=== PATIENT | female | born 1940 | race Caucasian/White ===

== ENCOUNTER 2022-04-18 14:26 | Outpatient (REF) | payer MEDICARE, SELFPAY ==
[2022-04-18 15:46] LABS: Anion Gap 12 (12-20); Blood Urea Nitrogen 22 mg/dL (9-16); Calcium 9.3 mg/dL (8.4-10.2); Carbon Dioxide 26 mmol/L (22-29); Chloride 105 mmol/L (96-108); Estimated Glomerular Filt Rate > 60; Glucose Random 103 mg/dL (60-115); Potassium 4.2 mmol/L (3.3-5.1); Sodium 139 mmol/L (135-145)
[2022-04-18 15:54] LABS: Erythrocyte Sedimentation Rate 13 MM/HR (0-20)
[2022-04-18 16:01] LABS: T4 Thyroxine 7.7 ug/dL (4.5-12.0); Thyroid Stimulating Hormone 1.48 uIU/mL (0.32-4.0)
[2022-04-19 09:14] LABS: Lyme Abs Screen <0.90 index
[2022-04-21 15:29] LABS: Aldolase 3.7 U/L (<=8.1)
== END 2022-04-18 14:27 | disposition home or self-care (01) ==
LOC: HO.LAB 14:26
PROVIDERS: PCP Internal Medicine; Visit Provider Psychiatry & Neurology Neurology
DX: G62.9 Polyneuropathy, unspecified (principal)
CPT/HCPCS: 36415; 80048; 82085; 82550; 84436; 84443; 85652; 86617; 86618

== ENCOUNTER 2024-04-09 14:47 | Outpatient (REF) | payer MEDICARE, SELFPAY ==
[2024-04-09 15:29] LABS: Imm Gran Abs Auto 0.01 X10*3/uL (0.00-0.03); Imm Gran Pct Auto 0.2 % (0.0-0.4); MANUAL DIFF FLAG SCAN; Mean Corpuscular Volume 96.6 fL (80.0-98.0); Monocytes Absolute Auto 0.4 X10*3/uL (0.1-1.2); Neutrophils Absolute Auto 2.8 x10*3/uL (2.0-8.3); PLT CLUMP 1; Red Cell Distribution Width 13.1 % (11.0-16.0); SCAN SMEAR FLAG 1
[2024-04-09 15:32] LABS: Basophils Percent Auto 0.7 % (0-2); Eosinophils Absolute Auto 0.2 X10*3/uL (0.0-0.4); Eosinophils Percent Auto 3.4 % (0-4); Hematocrit 36.8 % (37.0-47.0); Lymphocytes Absolute Auto 1.1 X10*3/uL (1.2-4.9); Lymphocytes Percent Auto 24.9 % (20-40); Mean Corpuscular HGB Conc 32.6 g/dl (31.0-35.0); Mean Corpuscular Hemoglobin 31.5 pg (27.0-33.0); Mean Platelet Volume 11.6 fL (9.4-12.3); Monocytes Percent Auto 7.9 % (2-11); Neutrophils Percent Auto 62.9 % (45-73); Red Blood Count 3.81 X10*6/uL (4.20-5.50)
--- OUTSIDE RECORDS SUMMARY | 2024-04-09 15:40 | XMS_ITS | Clinical Summary ---
Author Organization [facility] Address [address] [place] [address] Care Team Providers Care Water Filter Cleaner Name Role Phone Michael Cristina MD Primary Care Provider [phone] Allergies Active Allergy Reactions Criticality Noted Date Comments Sulfites 04/17/2019 Medications Medication Sig Dispensed Refills Start Date End Date Status lisinopril (PRINIVIL,ZESTRIL) tablet 20 mg Take 1 tablet (20 mg total) by mouth daily. 0 Active sertraline (ZOLOFT) 50 MG tablet Take 1 tablet (50 mg total) by mouth daily. 0 Active timolol (TIMOPTIC) 0.5 % ophthalmic solution Place 1 drop into both eyes daily. 0 Active alendronate (FOSAMAX) tablet 70 mg Take 1 tablet (70 mg total) by mouth every 7 days. Take with water on empty stomach/Nothing by mouth and do not lie down for next 30 minutes 0 Active pramipexole (MIRAPEX) 0.25 MG tablet Take 1 tablet (0.25 mg total) by mouth 3 (three) times a day. 0 Active Calcium Carbonate-Vitamin D (CALCIUM 600/VITAMIN D PO) Take by mouth 2 (two) times a day. 0 Active Multiple Vitamins-Minerals (VITEYES AREDS ADVANCED PO) Take by mouth. 0 Active omeprazole (PriLOSEC) 40 MG capsule Take 1 capsule (40 mg total) by mouth daily. 0 Active anastrozole (ARIMIDEX) 1 MG tablet Take 1 tablet by mouth once daily 90 tablet 1 07/17/2023 Active Active Problems Problem Noted Date Diagnosed Date Malignant neoplasm of overla pping sites of left breast in female, estrogen receptor positive 04/20/2019 Social History Tobacco Use Types Packs/Day Years Used Date Smoking Tobacco: Never Assessed Sex and Gender Information Value Date Recorded Sex Assigned at Not on file Gender Identity Not on file Sexual Orientation Not on file Job Start Date Occupation Industry Not on file Not on file Not on file Last Filed Vital Signs Vital Sign Reading Time Taken Comments Blood Pressure 140/39 08/03/2023 9:37 AM EDT Pulse 64 08/03/2023 9:37 AM EDT Temperature 36.8 ??C (98.3 ??F) 08/03/2023 9:37 AM ED T Respiratory Rate - - Oxygen Saturation 95% 08/03/2023 9:37 AM EDT Inhaled Oxygen Concentration - - Weight 79.4 kg (175 lb) 08/03/2023 9:37 AM EDT Height 170.2 cm (5' 7 ) 08/03/2023 9:37 AM EDT Body Mass Index 27.41 08/03/2023 9:37 AM EDT Plan of Treatment Health Maintenance Due Date Last Done Comments COVID-19 Vaccine (#1) 08/05/1945 Depression Screening 1954 BMI Counseling 1960 Preventative Health Evaluation 1960 DTap / Tdap / Td (1 - Tdap) 1961 Shingrix-Zoster Vaccine (1 o f 2) 1961 Fall Risk Assessment 08/05/2007 Osteoporosis Screening (DEXA Scan) 08/05/2007 Pneumococcal Vaccine (2 of 2 - PCV) 08/17/2011 08/16/2010 RSV Adult > 60+ Yrs or (1 - 1-dose 75+ series) 2017 Influenza Vaccine (#1) 2023 2, 12/17/2010 Hepatitis B Vaccines Aged Out No long er eligible based on patient's age to complete this topic RSV Ped < 20 months Aged Out No longe r eligible based on patient's age to complete this topic Care Teams Water Filter Cleaner Relationship Specialty Start Date End Date Michael Cristina MD [address] [place] [address] PCP - General Internal Medicine 03/26/19
--- OUTSIDE RECORDS SUMMARY | 2024-04-09 15:40 | XMS_ITS | Clinical Summary ---
Author Organization [facility] Address [address] [place] [address] Phone Care Team Providers Care Associate Creative Director Name Role Phone Michael Cristina MD Primary Care Provider [phone] Allergies Active Allergy Reactions Criticality Noted Date Comments Sulfites 04/17/2019 Medications alendronate (FOSAMAX) 70 mg tablet Take 1 tablet (70 mg total) by mouth every 7 days. Take with water on empty stomach/Nothi ng by mouth and do not lie down for next 30 minutes Active anastrozole (ARIMIDEX) 1 mg Take 1 tablet (1 mg total) by mouth daily 02/23/2023 Active calcium carb/vit D3/minerals (CALCIUM-VITAMI N D ORAL) Calcium Carbonate-Vit saxena D (CALCIUM 600/VITAMIN D PO) Route: Take by mouth 2 (two) times a day. - Oral Active multivitamin with minerals (MULTIPLE VITAMIN-MINERAL S ORAL) Multiple Vitamins-Mine rals (VITEYES AREDS ADVANCED PO) Route: Take by mouth. - Oral Active sertraline (ZOLOFT) 50 mg tablet Take 1 tablet (50 mg total) by mouth daily. Active timolol (TIMOPTIC) 0.5 % ophthalmic solution Place 1 drop into both eyes daily. Active sucralfate (CARAFATE) 1 gram tablet Take by mouth 4 (four) times a day. Active rOPINIRole (REQUIP) 3 mg tablet Take 1 tablet (3 mg total) by mouth at bedtime. Active Active Problems Problem Noted Date Diagnosed Date Osteopenia of multiple sites 02/08/2024 Use of anastrozole 02/08/2024 Malignant neoplasm of overla pping sites of left breast in female, estrogen receptor positive 05/05/2023 Encounters Date Type Department Care Team Description 03/14/2024 Lab Requisition [facility] - Main Lab [address] [facility] [place] [address] Duong Harrington PA Mixed hyperlipidemia; Type 2 diabetes mellitus without complications (CMS/HCC); Major depressive disorder, single episode, unspecified 02/08/2024 10:15 AM EST Office Visit [facility] Hematology Oncology [address] [place] [address] Robyn Marie, Malignant neoplasm of overlapping sites of left breast in female, estrogen receptor positive (CMS/HCC) (Primary Dx); Encounter for monitoring anastrozole therapy; Osteopenia, unspecified location from Last 3 Months Surgical History Surgery Date Site/Laterality Comments EYE SURGERY PROCEDURE: HISTORICAL EYE SURGERY COLONOSCOPY 01/04/2010 PROCEDURE: HISTORICAL COLONOSCOPY; COMMENT: Dr Youssef - cecal AVM, diverticulosis, internal hemorrhoids ESOPHAGOGASTRODUODENOSCOPY 02/13/2012 PROCEDURE: ND ESOPHAGOGASTRODUODENOSCOPY TRANSORAL DIAGNOSTIC; COMMENT: normal on PPI rx. OTHER SURGICAL HISTORY 05/01/2020 PROCEDURE: ---- OTHER ----; COMMENT: Removal of left breast implant and complete capsulectomy of the area of rupture with fibrosis around it it off the rib cartilage, pectoral muscle, and sternum by Dr. Michael Watters Family History Medical History Relation Name Comments Breast cancer Maternal Grandmother <50 Breast cancer Mother 60s Breast cancer Sister 73 Relation Name Status Comments Brother Alive Father (Age 61) pe Maternal Grandmother Mother (Age 92) breast can cer, Sister Alive Social History Tobacco Use Types Packs/Day Years Used Date Smoking Tobacco: Former Smokeless Tobacco: Former Alcohol Use Standard Drinks/Week Comments No 0 (1 standard drink = 0.6 oz pur e alcohol) Comments Unknown Sex and Gender Information Value Date Recorded Sex Assigned at Not on file Legal Sex Female 12:31 PM EST Gender Identity Not on file Sexual Orientation Not on file Obstetrics History Last Filed Vital Signs Vital Sign Reading Time Taken Comments Blood Pressure 134/45 02/08/2024 10:18 AM EST Pulse 60 02/08/2024 10:18 AM EST Temperature 36.8 ??C (98.3 ??F) 02/08/2024 10:[address] Respiratory Rate - - Oxygen Saturation 100% 02/08/2024 10:18 AM EST Inhaled Oxygen Concentration - - Weight 78.7 kg (173 lb 9.6 oz) 02/08/2024 10:18 AM EST Height 170.2 cm (5' 7 ) 02/08/2024 10:18 AM EST Body Mass Index 27.19 02/08/2024 10:18 AM EST Plan of Treatment Upcoming Encounters Date Type Department Care Team (Late st Contact Info) Description 04/24/2024 1:45 PM EST Office Visit [facility] [address] [facility] [address] [place] [phone] Vanessa Barnes MD [address] [facility] [address] [place] [address] 05/03/2024 8:45 AM EST [facility]ointment [facility] at [address] [phone] 09/05/2024 10:00 AM EDT Office Visit [facility] Hematology Oncology [address] [place] [phone] Robyn Marie, [address] [place] [address] Health Maintenance Due Date Last Done Comments COVID-19 Vaccine (#1) 08/05/1945 Diabetes: Annual Foot Exam 1952 Diabetes: Annual Retina Eye Exam 1952 Zoster Vaccines (1 of 2) 1961 Pneumococcal Vaccine: 50+ Years (2 of 2 - PCV) 08/17/2011 08/16/2010 RSV Immunization Patients 60+ Years Old (1 - 1-dose 75+ series) 2017 DTaP,Tdap,and Td Vaccines (2 - Td or Tdap) 08/16/2020 08/16/2010 Depression Screening 02/03/2022 Falls Risk Assessment 02/03/2022 Medicare Annual Wellness Visit 02/03/2022 Social Influencers of Health Screening 02/03/2022 Diabetes: Annual Urine Albumin-Creatinine Ratio (uACR) 02/09/2022 Influenza Vaccine (#1) 2023 01/11/2012, 2010 Diabetes: Blood Sugar Control Test (HGBA1C) 09/11/2024 03/14/2024 Diabetes: Annual GFR (Glomerular Filtration Rate) 03/14/2025 03/14/2024 Hypertension/CHF/CAD Annual BMP Blood Test 03/14/2025 03/14/2024 Cholesterol Screening (Lipid Panel) 03/14/2029 03/14/2024, 03/14/2024 Osteoporosis Screening (Bone Density Screening) 11/22/2033 11/23/2023, 11/22/2022, 11/11/2021, Additional history exists HIB Vaccines Aged Out No longer eligi ble based on patient's age to complete this topic HPV Vaccines Aged Out No longer eligi ble based on patient's age to complete this topic Hepatitis A Vaccines Aged Out No long er eligible based on patient's age to complete this topic Hepatitis B Vaccines Aged Out No long er eligible based on patient's age to complete this topic IPV Vaccines Aged Out No longer eligi ble based on patient's age to complete this topic MMR Vaccines Aged Out No longer eligi ble based on patient's age to complete this topic Meningococcal ACWY Vaccine Aged Out N o longer eligible based on patient's age to complete this topic RSV Immunization Patients Under 20 months Aged Out No longer eligible based on patient's age to complete this topic Varicella Vaccines Aged Out No longer eligible based on patient's age to complete this topic Procedures Procedure Name Priority Date/Time Associated Diagnosis Comments SST - GOLD Routine 03/14/2024 12:00 AM EST Mixed hyperlipidemia Type 2 diabetes mellitus without complications (CMS/HCC) Major depressive disorder, single episode, unspecified HEMOGLOBIN A1C Routine 03/14/2024 12:00 AM EST Mixed hyperlipidemia Type 2 diabetes mellitus without complications (CMS/HCC) Major depressive disorder, single episode, unspecified CREATININE, SERUM Routine 03/14/2024 12: 00 AM EST Mixed hyperlipidemia Type 2 diabetes mellitus without complications (CMS/HCC) Major depressive disorder, single episode, unspecified BUN Routine 03/14/2024 12:00 AM EST Mixed hyperlipidemia Type 2 diabetes mellitus without complications (CMS/HCC) Major depressive disorder, single episode, unspecified LDL CHOLESTEROL, DIRECT Routine 03/14/2024 12:00 AM EST Mixed hyperlipidemia Type 2 diabetes mellitus without complications (CMS/HCC) Major depressive disorder, single episode, unspecified HEPATIC FUNCTION PANEL Routine 03/14/2024 12:00 AM EST Mixed hyperlipidemia Type 2 diabetes mellitus without complications (CMS/HCC) Major depressive disorder, single episode, unspecified LIPID PANEL WITH REFLEX TO DIRECT LDL Routine 03/14/2024 12:00 AM EST Mixed hyperlipidemia Type 2 diabetes mellitus without complications (CMS/HCC) Major depressive disorder, single episode, unspecified ELECTROLYTE PANEL Routine 03/14/2024 12: 00 AM EST Mixed hyperlipidemia Type 2 diabetes mellitus without complications ([facility]/HCC) Major depressive disorder, single episode, unspecified TIGRE DEXA AXIAL SKELETON Routine 11/23/2023 5:01 PM EDT Other specified disorders of bone density and structure, right thigh from Last 3 Months or Most Recently Relevant to Health Maintenance Results * SST tube (03/14/2024 12:00 AM EST) Pathologist [facility] Extra Tube Hold for add-ons. 03/14/2024 8:01 PM EST [facility] Comment:Auto resulted. Blood Venous blood specimen / Unknown 03/14/2024 03/14/2024 6:40 PM EST us Duong MONTENEGRO LAB BLOOD ORDERABLES Final Res ult [facility] [address] [place] [address], [place] [phone] * Lipid panel with reflex to direct LDL (03/14/2024 12:00 AM EST) Cholesterol 140 0 - 200 mg/dL LAB CHEMISTRY METHOD 03/14/2024 10:13 PM EST [facility] Triglycerides 79 0 - 150 mg/dL LAB CHEMISTRY METHOD 03/14/2024 10:13 PM [facility] HDL 44 >=40 mg/dL LAB CHEMISTRY METHOD 03/14/2024 10:13 PM [facility] LDL Calculated 80 0 - 100 mg/dL LAB CHEMISTRY METHOD 03/14/2024 10:13 PM [facility] VLDL Cholesterol Mega 15.8 mg/dL LAB CHEMISTRY METHOD 03/14/2024 10:13 PM [facility] Non HDL Chol. (LDL+VLDL) 96 <145 mg/dL LAB CHEMISTRY METHOD 03/14/2024 10:13 PM [facility] Chol/HDL Ratio 3.2 0.0 - 4.4 LAB CHEMISTRY METHOD 03/14/2024 10:13 PM [facility] Blood Venous blood specimen / Unknown 03/14/2024 03/14/2024 6:40 PM EST Duong MONTENEGRO LAB BLOOD ORDERABLES Final Res ult [facility] [address] [place] [address], [place] [phone] * Creatinine (03/14/2024 12:00 AM EST) Creatinine 0.96 0.50 - 1.10 mg/dL LAB CHEMISTRY METHOD 03/14/2024 9:56 PM [facility] eGFR 60 >=60 mL/min/1. 73m2 LAB CHEMISTRY METHOD 03/14/2024 9:56 PM [facility] Comment:Calculation based on the??Chronic Kidney Disease Epidemiology Collaboration (CKD-EPI) equation refit??without adjustment for race. Blood Venous blood specimen / Unknown 03/14/2024 03/14/2024 6:40 PM EST us Duong Kolovrat PA LAB BLOOD ORDERABLES Final Res ult Performing Organization Address City/[facility]/ZIP Co de Phone Number [facility] [address] [place] [address], [place] [phone] * BUN (03/14/2024 12:00 AM EST) BUN 23 5 - 25 mg/dL LAB CHEMISTRY METHOD 03/14/2024 9:56 PM EST [facility] Blood Venous blood specimen / Unknown 03/14/2024 03/14/2024 6:40 PM EST us Duong MONTENEGRO LAB BLOOD ORDERABLES Final Res ult Performing Organization Address City/[facility]/ZIP Co de Phone Number [facility] [address] [place] [address], [place] [phone] * LDL cholesterol, direct (03/14/2024 12:00 AM EST) LDL Direct 83 <=100 mg/dL LAB CHEMISTRY METHOD 03/14/2024 10:13 PM EST [facility] Blood Venous blood specimen / Unknown 03/14/2024 03/14/2024 6:40 PM EST us Duogn MONTENEGRO LAB BLOOD ORDERABLES Final Res ult Performing Organization Address City/[facility]/ZIP Co de Phone Number [facility] [address] [place] [address], [place] [phone] * Hemoglobin A1c (03/14/2024 12:00 AM EST) Hemoglobin A1C 6.0 <6.5 % LAB CHEMISTRY METHOD 03/15/2024 10:14 AM EST [facility] Mean Bld Glu Estim. 126 mg/dL LAB CHEMISTRY METHOD 03/15/2024 10:14 AM EST [facility] Blood Venous blood specimen / Unknown 03/14/2024 03/14/2024 6:40 PM EST Duong MONTENEGRO LAB BLOOD ORDERABLES Final Res ult Performing Organization Address [facility]/ZIP Co de Phone Number [facility] [address] [place] [address], [place] [phone] * Hepatic function panel (03/14/2024 12:00 AM EST) Total Protein 7.6 6.0 - 8.0 g/dL LAB CHEMISTRY METHOD 03/14/2024 10:13 PM EST [facility] Albumin 4.1 3.2 - 5.0 g/dL LAB CHEMISTRY METHOD 03/14/2024 10:13 PM [facility] Total Bilirubin 1.2 0.0 - 1.4 mg/dL LAB CHEMISTRY METHOD 03/14/2024 10:13 PM [facility] Bilirubin, Direct 0.3 0.0 - 0.3 mg/dL LAB CHEMISTRY METHOD 03/14/2024 10:13 PM EST [facility] Bilirubin, Indirect 0.9 0.0 - 1.1 mg/dL LAB CHEMISTRY METHOD 03/14/2024 10:13 PM [facility] ALT (SGPT) 20 10 - 60 unit/L LAB CHEMISTRY METHOD 03/14/2024 10:13 PM [facility] AST (SGOT) 19 10 - 42 unit/L LAB CHEMISTRY METHOD 03/14/2024 10:13 PM [facility] Alkaline Phosphatase 89 42 - 121 unit/L LAB CHEMISTRY METHOD 03/14/2024 10:13 PM [facility] Blood Venous blood specimen / Unknown 03/14/2024 03/14/2024 6:40 PM EST Duong MONTENEGRO LAB BLOOD ORDERABLES Final Res ult Performing Organization Address City/[facility]/ZIP Co de Phone Number [facility] [address] [place] [address], [place] [phone] * Electrolyte panel (03/14/2024 12:00 AM EST) Sodium 138 133 - 145 mmol/L LAB CHEMISTRY METHOD 03/14/2024 10:13 PM EST [facility] Potassium 3.8 3.5 - 5.5 mmol/L LAB CHEMISTRY METHOD 03/14/2024 10:13 PM EST [facility] Chloride 104 96 - 110 mmol/L LAB CHEMISTRY METHOD 03/14/2024 10:13 PM EST [facility] CO2 27 21 - 32 mmol/L LAB CHEMISTRY METHOD 03/14/2024 10:13 PM EST [facility] Anion Gap 7 3 - 11 LAB CHEMISTRY METHOD 03/14/2024 10:13 PM EST [facility] Blood Venous blood specimen / Unknown 03/14/2024 03/14/2024 6:40 PM EST Duong MONTENEGRO LAB BLOOD ORDERABLES Final Res ult Performing Organization Address City/[facility]/ZIP Co de Phone Number [facility] [address] [place] [address], [place] [phone] * TIGRE DEXA AXIAL SKELETON (11/23/2023 5:01 PM EDT) Anatomical Region Laterality Modality Mammography 11/23/2023 9:22 AM EDT Narrative 11/23/2023 5:01 PM EDT [facility] Diagnostic Imaging Department [address] [place] [address] Patient: ??SIMA BANERJEE ?/Age/Sex: 1940 - 83 - F Unit#: ??[id number] ? Location/Status: ??SPDIMAM/REG CLI ? Mnemonic/Ordering Site: ??MAMDEXAAX/SPMAM Ordering Physician: ??ROBYN MARIE DO [facility] Dexa Axial Skeleton - 11/23/23 - 947 Report Status:Signed History: Low estrogen state due to menopause. Personal history of fracture. Parent hip fracture. On alendronate and anastrozole. Comparison: 11/21/22 Findings: Bone densitometry is performed utilizing dual energy x-ray absorptiometry (DXA) in the [employer] unit. The lumbar spine and proximal femora are evaluated in the AP projection. The FRAX questionaire was completed. The results indicate low bone mass (osteopenia), with a right femoral neck T- score of -1.9. The Z score is 0.1, indicating bone mineral density within the range of normal for age. There has been no statistically significant change. ??The detailed DEXA report will be mailed to the referring physician's office. DualFemur FRAX: 10-year Probability of Fracture: Major Osteoporotic 36.5 percent ??Hip 22.3 percent. IMPRESSION: Osteopenia. [id number] Dictating Physician: ??INDIRA GOMEZ MD Electronically Signed by: ??INDIRA GOMEZ MD Dic Date/Time: ??11/23/23 1700 Sign date/Time: ??11/23/23 1701 Procedure Note Indira Gomez MD - 12/13/2023 [facility] Diagnostic Imaging Department [address] [place], [place] [id number] Patient: SIMA BANERJEE /Age/Sex: 1940 - 83 - F Unit#: [id number] Location/Status: SPDIMAM/REG CLI Mnemonic/Ordering Site: MAMDEXAAX/SPMAM Ordering Physician: ROBYN MARIE DO [facility] Dexa Axial Skeleton - 11/23/23947 Report Status:Signed History: Low estrogen state due to menopause. Personal history offracture. Parent hip fracture. On alendronate and anastrozole. Comparison: 11/21/22 Findings: Bone densitometry is performed utilizing dual energy x-ray absorptiometry(DXA) in the [employer] unit. The lumbar spine and proximal femora areevaluated in the AP projection. The FRAX questionaire was completed. The results indicate low bone mass (osteopenia), with a right femoral neckT- score of -1.9. The Z score is 0.1, indicating bone mineral density withinthe range of normal for age. There has been no statistically significant change. The detailed DEXAreport will be mailed to the referring physician's office. DualFemur FRAX: 10-year Probability of Fracture: Major Osteoporotic 36.5 percent Hip 22.3 percent. IMPRESSION: Osteopenia. [id number] Dictating Physician: INDIRA GOMEZ MD Electronically Signed by: INDIRA GOMEZ MD Dic Date/Time: 11/23/23 170 Sign date/Time: 11/23/23 170 Robyn Stephanie Anna DO IMG BI PROCEDURES Fin al Result from Last 3 Months or Most Recently Relevant to Health Maintenance Insurance [employer] Care Teams Associate Creative Director Relationship Specialty Start Date End Date Michael Cristina MD [address] [place] [phone] PCP - General Internal Medicine 03/22/19
--- OUTSIDE RECORDS SUMMARY | 2024-04-09 15:40 | XMS_ITS | Encounter Summary ---
Author Organization [facility] Address [address] [place] [address] Care Team Providers Care Extension Agent Name Role Phone Michael Cristina MD Primary Care Provider Encounter Details Date Type Department Care Team (Latest Contact Info) Description 03/14/2024 Lab Requisition [facility] - Main Lab [address] [facility] [place] [address] Doung Harrington PA 299 [facility] [address] [place], [place] [id number] Mixed hyperlipidemia; Type 2 diabetes mellitus without complications (CMS/HCC); Major depressive disorder, single episode, unspecified Social History Tobacco Use Types Packs/Day Years Used Date Smoking Tobacco: Former Smokeless Tobacco: Former Alcohol Use Standard Drinks/Week Comments No 0 (1 standard drink = 0.6 oz pur e alcohol) Comments Unknown Sex and Gender Information Value Date Recorded Sex Assigned at Not on file Legal Sex Female 12:31 PM EST Gender Identity Not on file Sexual Orientation Not on file documented as of this encounter Plan of Treatment Upcoming Encounters Date Type Department Care Team (Late st Contact Info) Description 04/24/2024 1:45 PM EST Office Visit [facility] [address] [place] [address] Vanessa Barnes MD 175 [facility] [address] [place], [place] [id number] 05/03/2024 8:45 AM EST Appointment [facility] [address] [place] [address] 09/05/2024 10:00 AM EDT Office Visit [facility] Hematology Oncology [address] [place] [phone] Thi Castillo, [address] [place] [address] documented as of this encounter Procedures Procedure Name Priority Date/Time Associated Diagnosis [...] (CMS/HCC) Major depressive disorder, single episode, unspecified documented in this encounter Results * SST tube (03/14/2024 12:00 AM EST) Extra Tube Hold for add-ons. 03/14/2024 8:01 PM EST [facility] Comment:Auto resulted. Blood Venous blood specimen / Unknown 03/14/2024 03/14/2024 6:40 PM EST Duong MONTENEGRO LAB BLOOD ORDERABLES Final Res ult Performing Organization Address [facility]/ZIP Co de Phone Number [facility] [address] [place] [address], [place] [phone] * Hemoglobin A1c (03/14/2024 12:00 AM EST) [facility] Hemoglobin A1C 6.0 <6.5 % LAB CHEMISTRY METHOD 03/15/2024 10:14 AM [facility] Mean Bld Glu Estim. 126 mg/dL LAB CHEMISTRY METHOD 03/15/2024 10:14 AM [facility] Blood Venous blood specimen / Unknown 03/14/2024 03/14/2024 6:40 PM EST Duong MONTENEGRO LAB BLOOD ORDERABLES Final Res ult Performing Organization Address [facility] de Phone Number [facility] [address] [place] [address], [place] [phone] * Creatinine (03/14/2024 12:00 AM EST) Pathologist [facility] Creatinine 0.96 0.50 - 1.10 mg/dL LAB CHEMISTRY METHOD 03/14/2024 9:56 PM [facility] eGFR 60 >=60 mL/min/1. 73m2 LAB CHEMISTRY METHOD 03/14/2024 9:56 PM [facility] Comment:Calculation based on the??Chronic Kidney Disease Epidemiology Collaboration (CKD-EPI) equation refit??without adjustment for race. Blood Venous blood specimen / Unknown 03/14/2024 03/14/2024 6:40 PM EST us Duong MONTENEGRO LAB BLOOD ORDERABLES Final Res ult Performing Organization Address [facility]/ZIP Co de Phone Number [facility] [address] [place] [address], [place] [phone] * BUN (03/14/2024 12:00 AM EST) BUN 23 5 - 25 mg/dL LAB CHEMISTRY METHOD 03/14/2024 9:56 PM EST [facility] Blood Venous blood specimen / Unknown 03/14/2024 03/14/2024 6:40 PM EST us Duong MONTENEGRO LAB BLOOD ORDERABLES Final Res ult Performing Organization Address [facility]/ZIP Co de Phone Number [facility] [address] [place] [address], [place] [phone] * LDL cholesterol, direct (03/14/2024 12:00 AM EST) Pathologist [facility] LDL Direct 83 <=100 mg/dL LAB CHEMISTRY METHOD 03/14/2024 10:13 PM EST [facility] Blood Venous blood specimen / Unknown 03/14/2024 03/14/2024 6:40 PM EST us Duong MONTENEGRO LAB BLOOD ORDERABLES Final Res ult Performing Organization Address City/[facility]/ZIP Co de Phone Number [facility] [address] [place] [address], [place] [phone] * Hepatic function panel (03/14/2024 12:00 AM EST) Total Protein 7.6 6.0 - 8.0 g/dL LAB CHEMISTRY METHOD 03/14/2024 10:13 PM EST [facility] Albumin 4.1 3.2 - 5.0 g/dL LAB CHEMISTRY METHOD 03/14/2024 10:13 PM [facility] Total Bilirubin 1.2 0.0 - 1.4 mg/dL LAB CHEMISTRY METHOD 03/14/2024 10:13 PM [facility] Bilirubin, Direct 0.3 0.0 - 0.3 mg/dL LAB CHEMISTRY METHOD 03/14/2024 10:13 PM [facility] Bilirubin, Indirect 0.9 0.0 - 1.1 mg/dL LAB CHEMISTRY METHOD 03/14/2024 10:13 PM [facility] ALT (SGPT) 20 10 - 60 unit/L LAB CHEMISTRY METHOD 03/14/2024 10:13 PM [facility] AST (SGOT) 19 10 - 42 unit/L LAB CHEMISTRY METHOD 03/14/2024 10:13 PM [facility] Alkaline Phosphatase 89 42 - 121 unit/L LAB CHEMISTRY METHOD 03/14/2024 10:13 PM [facility] Blood Venous blood specimen / Unknown 03/14/2024 03/14/2024 6:40 PM EST us Duong MONTENEGRO LAB BLOOD ORDERABLES Final Res ult [facility] [address] [place] [address], * Lipid panel with reflex to direct LDL (03/14/2024 12:00 AM EST) Cholesterol 140 0 - 200 mg/dL LAB CHEMISTRY METHOD 03/14/2024 10:13 PM [facility] Triglycerides 79 0 - 150 mg/dL LAB CHEMISTRY METHOD 03/14/2024 10:13 PM [facility] HDL 44 >=40 mg/dL LAB CHEMISTRY METHOD 03/14/2024 10:13 PM [facility] LDL Calculated 80 0 - 100 mg/dL LAB CHEMISTRY METHOD 03/14/2024 10:13 PM [facility] VLDL Cholesterol Mega 15.8 mg/dL LAB CHEMISTRY METHOD 03/14/2024 10:13 PM [facility] Non HDL Chol. (LDL+VLDL) 96 <145 mg/dL LAB CHEMISTRY METHOD 03/14/2024 10:13 PM [facility] Chol/HDL Ratio 3.2 0.0 - 4.4 LAB CHEMISTRY METHOD 03/14/2024 10:13 PM [facility] Blood Venous blood specimen / Unknown 03/14/2024 03/14/2024 6:40 PM EST Duong MONTENEGRO LAB BLOOD ORDERABLES Final Res ult [facility] [address] [place] [address], [place] [phone] * Electrolyte panel (03/14/2024 12:00 AM EST) Sodium 138 133 - 145 mmol/L LAB CHEMISTRY METHOD 03/14/2024 10:13 PM [facility] Potassium 3.8 3.5 - 5.5 mmol/L LAB CHEMISTRY METHOD 03/14/2024 10:13 PM [facility] Chloride 104 96 - 110 mmol/L LAB CHEMISTRY METHOD 03/14/2024 10:13 PM [facility] CO2 27 21 - 32 mmol/L LAB CHEMISTRY METHOD 03/14/2024 10:13 PM [facility] Anion Gap 7 3 - 11 LAB CHEMISTRY METHOD 03/14/2024 10:13 PM [facility] Blood Venous blood specimen / Unknown 03/14/2024 03/14/2024 6:40 PM EST Duong MONTENEGRO LAB BLOOD ORDERABLES Final Res ult [facility] [address] [place] [address], documented in this encounter Visit Diagnoses Diagnosis Mixed hyperlipidemia Type 2 diabetes mellitus without complications (CMS/HCC) Major depressive disorder, single episode, unspecified documented in this encounter Care Teams Extension Agent Relationship Specialty Start Date End Date Michael Cristina MD [address] [address] PCP - General Internal Medicine 03/22/19 documented as of this encounter
[2024-04-09 15:50] LABS: Platelet Count 125 X10*3/uL (160-400); White Blood Count 4.5 X10*3/uL (4.8-10.8)
[2024-04-09 15:58] LABS: Anion Gap 11 (12-20); Blood Urea Nitrogen 18 mg/dL (9-16); Calcium 9.7 mg/dL (8.4-10.2); Carbon Dioxide 32 mmol/L (22-29); Chloride 104 mmol/L (96-108); Estimated Glomerular Filt Rate > 60; Glucose Random 111 mg/dL (60-115); Potassium 3.6 mmol/L (3.3-5.1); Sodium 143 mmol/L (135-145)
[2024-04-09 16:10] LABS: TSH reflex Free T4 1.07 uIU/mL (0.32-4.0)
[2024-04-09 16:29] LABS: Folate 10.8 ng/mL (> or = 4.0); Vitamin B12 277 pg/mL (200-900)
[2024-04-09 19:05] LABS: SLIDE REVIEW VERIFIED
== END 2024-04-09 14:48 | disposition home or self-care (01) ==
LOC: HO.LAB 14:47
PROVIDERS: Visit Provider Registered Nurse
DX: G31.84 Mild cognitive impairment of uncertain or unknown etiology (principal)
CPT/HCPCS: 36415; 80048; 82607; 82746; 84443; 85025

== ENCOUNTER 2024-05-10 07:30 | Outpatient (REF) | payer MEDICARE, SELFPAY ==
--- NOTE | ~2024-05-10 | CT_ITS ---
CLINICAL HISTORY: Mild cognitive impairment CT head without contrast Comparison: None Findings: No intra-axial mass, midline shift, hydrocephalus, or acute hemorrhage. Mild diffuse cerebral volume loss. Mild degree of patchy low-density within the periventricular and subcortical white matter. There is no sinus or mastoid fluid. The orbits are unremarkable. No skull fracture. IMPRESSION: 1. No acute intracranial findings. This document has been electronically signed by: Tomás Mckinley MD on 05/10/2024 15:39:56
== END 2024-05-10 07:31 | disposition home or self-care (01) ==
LOC: HO.CT 07:30
PROVIDERS: PCP Internal Medicine; Visit Provider Registered Nurse
DX: G31.84 Mild cognitive impairment of uncertain or unknown etiology (principal)
CPT/HCPCS: 70450

== ENCOUNTER → 2024-05-10 07:33 | Outpatient (BNV) | payer MEDICARE, SELFPAY | PROVIDERS: PCP Internal Medicine; Visit Provider Radiology Diagnostic Radiology | DX: G31.84 Mild cognitive impairment of uncertain or unknown etiology (principal) | CPT/HCPCS: 70450 ==

== ENCOUNTER 2024-10-10 09:26 | Outpatient (AMB) | payer MEDICARE, SELFPAY ==
--- NOTE | 2024-10-10 09:52 | A.OFFVIS_ITS ---
Intake Visit Reasons: 3 Months Allergies ropinirole Allergy (Unknown, Verified 10/10/24 10:18) Hallucinations Sulfa (Sulfonamide Antibiotics) (SULFA (SULFONAMIDE ANTIBIOTICS)) Allergy (Unknown, Unverified 10/10/24 10:18) HIVES Medication List - Last Reconciled 10/10/24 by Vickie Hartley CNP alendronate 70 mg PO QWEEK amlodipine 5 mg PO DAILY gabapentin 300 mg PO BEDTIME lisinopril-hydrochlorothiazide 20-12.5 mg 1 tab PO DAILY sertraline 50 mg PO DAILY HPI Comments Details: RLS symptoms are still bothersome, gabapentin dose increased to 300mg by PCP office earlier this month without improvement. Gets jumpy feeling and urge to move legs, and feels better if she moves legs or gets up and walks around. She was also having some burning pain in legs, usually at night time, along with some occasional numbness and tingling. Sleep was not so good due to RLS symptoms and pain. Balance was off and trips at times, but no falls. Memory was about the same. She sometimes forgot where she put things around the house and would eventually find it later on. She was admitted to [facility] at the end on 04/2024 for hallucinations, seeing bugs in her house, which was found to be a side effect from ropinirole. Had fall in 02/2024 when using cane without significant injury. Legs felt weaker, L > R. Difficulty with curbs and going up stairs. Has left leg brace which seems to help some. Occasional numbness and discomfort in feet and legs. She was concerned memory is not so good over the past few months. She is more forgetful and misplaces things around the house. She lives alone, cooks and cleans. Driving without issue, has not gotten lost.?Around 2019, she started with increased weakness to both lower and occasional numbness in toes, L > R. [facility] Medical History (Updated 10/10/24 @ 09:57 by Vickie Hartley CNP) Extrapyramidal and movement disorder MCI (mild cognitive impairment) Osteoarthritis Hypertension Myopathy Peripheral neuropathy Review of Systems Const Denies chills, Denies daytime sleepiness, Reports difficulty sleeping, Denies fatigue, Denies fever(s), Denies frequent falls, Denies headache(s), Denies increased appetite, Denies poor appetite, Denies snoring, Denies weakness, Denies weight gain and Denies weight loss Eyes Denies loss of vision ENT Denies vertigo, Denies dizziness, Denies headache(s) and Denies neck pain Card Denies chest pain at rest, Denies chest pain with activity, Denies syncope, Denies leg edema, Denies palpitations, Denies dyspnea and Denies dyspnea on exertion Resp Denies cough, Denies dyspnea, Denies dyspnea on exertion and Denies snoring GI Denies abdominal pain, Denies constipation, Denies heartburn, Denies diarrhea and Denies nausea Denies urinary frequency, Denies urinary incontinence and Denies urinary urgency Musc Reports abnormal gait (balance difficulty), Reports back pain, Denies myalgias, Denies arthralgias, Denies neck pain, Reports numbness and Reports tingling Neuro Reports abnormal gait (balance difficulty), Denies vertigo, Denies dizziness, Denies syncope, Denies frequent falls, Denies headache(s), Denies lack of coordination, Denies loss of vision, Reports memory loss, Reports numbness, Denies Other visual disturbances, Reports restless legs, Denies seizure-like activity, Reports tingling, Denies paresthesias, Denies tremor(s) and Denies weakness Psych Denies anxiety, Denies depression, Denies auditory hallucinations, Reports memory loss and Reports visual hallucinations Endo Denies fatigue and Denies palpitations Physical Exam Const Other: General Appearance:? normal, in no acute distress. Heart:? S1, S2 normal, no murmurs. Lungs:? clear anteriorly and posteriorly. Musculoskeletal:? normal. Extremities:? no edema. Psych:? alert, as below. Neuro Other: Abnormal Neurological Findings:?Bilateral hip flexor weakness graded at 4/5. Weakness in the glutei with difficulty getting up from the chair. Bilateral dorsiflexor and everter weakness in the feet graded at 4 +/5. Quadriceps hams trings are normal. No atrophy or fasciculations. Absent reflexes in the lower extremities. Minimal blunting of pinprick sensation in the toes. MMS 26/30 Mental Status: alert, as below. Cranial Nerves: Pupils are equal, round, and reactive to light. External ocular muscles are intact. Visual burton are full, no ptosis. Face is symmetrical, no facial weakness or droop. Facial sensations are normal. Tongue protrudes in midline. Palate elevates symmetrically. Shoulder shrugging is normal Motor Examination: As above, otherwise normal muscle tone, bulk and strength. No atrophy or fasciculations. No drift of the extended upper extremities. DTR 2+. Plantars are flexor. Sensory Exam: As above, otherwise normal light touch, temperature, pinprick, vibration, and joint-position sensations. Rhomberg sign is absent. Coordination: No ataxia. No titubation. Gait Exam: Within normal limits. Cerebellar Signs: [id number] is okay. Extrapyramidal System: No tremor, rigidity with normal facial expressions. No bradykinesia. No bradyphrenia. Normal arm swing and posture. No propulsion or retropulsion. Speech: Normal. No dysphasia or dysarthria. MMSE Level of Consciousness: Alert. Orientation: Knows correct year, month, date, day and season. Knows correct city, county and state. Knows correct location and floor. Registration: Able to register 3 objects. Attention: Serial 7's performed accurately to 86 Recall: Able to recall 2 out of 3 objects. Language: Normal spontaneous speech, fluency, repetition, naming, comprehension, reading, and writing. Total Score: 26/30. Results Reviewed Results Reviewed: 04/2024 CT brain: Mild diffuse cerebral volume loss 04/26/24 EEG- WNL. 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 EMG in the left L4-S1 innervated muscles is consistent with neuropathic changes. 04/21 Labs normal. Assessment & Plan Assessment & Plan (1) RLS (restless legs syndrome): Code(s): G25.81 - Restless legs syndrome Category: Medical Plan: Increase gabapentin 300mg 2 capsule at bedtime. Reviewed labs ordered. (2) Peripheral neuropathy: Code(s): G62.9 - Polyneuropathy, unspecified Category: Medical Qualifiers: Peripheral neuropathy type: polyneuropathy, unspecified Qualified Code(s): G62.9 - Polyneuropathy, unspecified Plan: Gabapentin may also help with neuropathic symptoms. (3) MCI (mild cognitive impairment): Code(s): G31.84 - Mild cognitive impairment of uncertain or unknown etiology Category: Medical Plan: Discussed medication treatment options, declining at this time. Stay physically and socially active. Plan Meds tried: ropinirole (side effect of hallucinations) Orders: Orders IRON PROFILE Today G25.81 - Restless legs syndrome Medications: New gabapentin 600 mg (2 x 300 mg) PO BEDTIME 60 caps 2RF 30 days Coding Level of Care Code Est Pt Level 4 (54117) Diagnoses RLS (restless legs syndrome) G25.81 Peripheral polyneuropathy G62.9 Peripheral neuropathy type: polyneuropathy, unspecified MCI (mild cognitive impairment) G31.84
--- OUTSIDE RECORDS SUMMARY | 2024-10-10 10:09 | XMS_ITS | Clinical Summary ---
Author Organization [facility] Address [address] [place] [address] Phone Care Team Providers Care Elementary Supervisor Name Role Phone Michael Cristina MD Primary Care Provider Allergies Active Allergy Reactions Criticality Noted Date Comments Sulfites 04/17/2019 Medications alendronate (FOSAMAX) 70 mg tablet Take 1 tablet (70 mg total) by mouth every 7 days. Take with water on empty stomach/Noth ing by mouth and do not lie down for next 30 minutes Active calcium carb/vit D3/minerals (CALCIUM-VITAM IN D ORAL) Calcium Carbonate-Vi tamin D (CALCIUM 600/VITAMIN D PO) Route: Take by mouth 2 (two) times a day. - Oral Active multivitamin with minerals (MULTIPLE VITAMIN-MINERA LS ORAL) Multiple Vitamins-Min erals (VITEYES AREDS ADVANCED PO) Route: Take by mouth. - Oral Active sertraline (ZOLOFT) 50 mg tablet Take 1 tablet (50 mg total) by mouth daily. Active timolol (TIMOPTIC) 0.5 % ophthalmic solution Place 1 drop into both eyes daily. Active amLODIPine (NORVASC) 5 mg tablet Take 1 tablet (5 mg total) by mouth 1 (one) time each day. 5 Active gabapentin (NEURONTIN) 100 mg capsule Take 1 capsule (100 mg total) by mouth at bedtime. at bedtime 5 Active cholecalcifero l (VITAMIN D-3) 50 mcg (2,000 unit) tablet Take by mouth. Active anastrozole (ARIMIDEX) 1 mg 3 025 Discontinued sucralfate (CARAFATE) 1 gram tablet Take by mouth 4 (four) times a day. 025 Discontinued rOPINIRole (REQUIP) 3 mg tablet Take 1 tablet (3 mg total) by mouth at bedtime. 025 Discontinued lisinopril-hyd roCHLOROthiazi de (PRINZIDE,ZEST ORETIC) 20-12.5 mg per tablet Take 1 tablet by mouth 1 (one) time each day. 025 Discontinued Active Problems Problem Noted Date Diagnosed Date Osteopenia of multiple sites 02/08/2024 Use of anastrozole 02/08/2024 Malignant neoplasm of overla pping sites of left breast in female, estrogen receptor positive ([facility] V24, [facility] V28) 05/05/2023 Encounters Date Type Department Care Team Description 09/19/2024 1:45 PM EDT Office Visit [facility]emat[facility] Oncology [address] [place] [phone] Robyn Marie, Malignant neoplasm of overlapping sites of left breast in female, estrogen receptor positive ([facility] V24, [facility] V28) (Primary Dx); Osteopenia, unspecified location 09/19/2024 Telephone [facility]ology Oncology [address] [place] [phone] Colleen Franco, RN Script for bra from Last 3 Months Surgical History Surgery Date Site/Laterality Comments EYE SURGERY PROCEDURE: HISTORICAL EYE SURGERY COLONOSCOPY 01/05/20 10 PROCEDURE: HISTORICAL COLONOSCOPY; COMMENT: Dr Youssef - cecal AVM, diverticulosis, internal hemorrhoids ESOPHAGOGASTRODUODENOSCOPY 02/13/20 12 PROCEDURE: [place] ESOPHAGOGASTRODUODENOSCOPY TRANSORAL DIAGNOSTIC; COMMENT: normal on PPI rx. OTHER SURGICAL HISTORY 05/02/19 PROCEDURE: ---- OTHER ----; COMMENT: Removal of left breast implant and complete capsulectomy of the area of rupture with fibrosis around it it off the rib cartilage, pectoral muscle, and sternum by Dr. Michael Watters BREAST LUMPECTOMY Left BREAST ENHANCEMENT SURGERY W IMPLANT Right Medical History Medical History Date Comments Breast cancer ([facility] V24, [facility] V28) Family History Medical History Relation Name Comments [...] = 0.6 oz pur e alcohol) Comments No Sex and Gender Information Value Date Recorded Sex Assigned at Female 05/22/2024 2:12 PM EDT Legal Sex Female 12:31 PM EST Gender Identity Female 05/22/2024 2:12 PM EDT Sexual Orientation Straight 05/22/2024 2: 12 PM EDT Obstetrics History Para Term AB IAB SAB Ectopic Multiple Livin g Live Births 1 Last Filed Vital Signs Vital Sign Reading Time Taken Comments Blood Pressure 150/54 09/19/2024 1:50 PM EDT Pulse 56 09/19/2024 1:50 PM EDT Temperature 36.6 C (97.9 F) 09/19/2024 1:50 PM EDT Respiratory Rate 14 05/23/2024 11:28 AM EDT Oxygen Saturation 97% 09/19/2024 1:50 PM EDT Inhaled Oxygen Concentration - - Weight 75.3 kg (166 lb) 09/19/2024 1:50 PM EDT Height 170.2 cm (5' 7 ) 09/19/2024 1:50 PM EDT Body Mass Index 26 09/19/2024 1:50 PM EDT Plan of Treatment Upcoming Encounters Date Type Department Care Team (Late st Contact Info) Description 04/21/2025 9:00 AM EST Appointment [facility] [address] [place] [phone] 04/30/2025 1:30 PM EST Office Visit [address] [phone] Vanessa Barnes MD [address] [address] 09/18/2025 10:00 AM EDT Office Visit [facility]ematology Oncology [address] [place] [phone] Robyn Marie, DO [address] [place] [address] Health Maintenance Due Date Last Done Comments COVID-19 Vaccine (#1) 08/05/1945 Diabetes: Annual Foot Exam 1952 Diabetes: Annual Retina Eye Exam 1950 Zoster Vaccines (1 of 2) 1961 Pneumococcal Vaccine: 50+ Years (2 of 2 - PCV) 08/17/2011 08/16/2010 RSV Immunization Adult Patients (1 - 1-dose 75+ series) 2017 DTaP,Tdap,and Td Vaccines (2 - Td or Tdap) 08/16/2020 08/16/2010 Falls Risk Assessment 02/03/2022 Medicare Annual Wellness Visit 02/03/2022 Social Influencers of Health Screening 02/03/2022 Diabetes: Annual Urine Albumin-Creatinine Ratio (uACR) 02/09/2022 Depression Screening 02/28/2024 Diabetes: Blood Sugar Control Test (HGBA1C) 09/11/2024 03/14/2024 Influenza Vaccine (#1) 2024 01/11/2012, 2010 Diabetes: Annual GFR (Glomerular Filtration Rate) 05/22/2025 05/22/2024, 03/14/2024 Hypertension/CHF/CAD Annual BMP Blood Test 05/22/2025 05/22/2024, 03/14/2024 Cholesterol Screening (Lipid Panel) 03/14/2029 03/14/2024, [...] patient's age to complete this topic Meningococcal B Vaccine Aged Out No l onger eligible based on patient's age to complete this topic RSV Immunization Patients Under 20 months Aged Out No longer eligible based on patient's age to complete this topic Varicella Vaccines Aged Out No longer eligible based on patient's age to complete this topic Procedures Procedure Name Priority Date/Time Associated Diagnosis Comments COMPREHENSIVE METABOLIC PANEL STAT 05/22/2024 12:28 PM EDT HEMOGLOBIN A1C Routine 03/14/2024 12:00 AM EST Mixed hyperlipidemia Type 2 diabetes mellitus without complications ([facility]/HCC) Major depressive disorder, single episode, unspecified LDL CHOLESTEROL, DIRECT Routine 03/14/2024 12:00 AM EST Mixed hyperlipidemia Type 2 diabetes mellitus without complications ([facility]/HCC) Major depressive disorder, single episode, unspecified IRWIN DEXA AXIAL SKELETON Routine 11/23/2023 5:01 PM EDT Other specified disorders of bone density and structure, right thigh from Last 3 Months or Most Recently Relevant to Health Maintenance Results * (ABNORMAL) Comprehensive metabolic panel (05/22/2024 12:28 PM EDT) Sodium 143 133 - 145 mmol/L LAB CHEMISTRY METHOD 05/22/2024 1:27 PM EDT [facility] Potassium 4.0 3.5 - 5.5 mmol/L LAB CHEMISTRY METHOD 05/22/2024 1:27 PM T [facility] Chloride 107 96 - 110 mmol/L LAB CHEMISTRY METHOD 05/22/2024 1:27 PM [facility] CO2 30 21 - 32 mmol/L LAB CHEMISTRY METHOD 05/22/2024 1:27 PM [facility] Anion Gap 6 3 - 11 LAB CHEMISTRY METHOD 05/22/2024 1:27 PM T [facility] Glucose 115(H) 70 - 100 mg/dL LAB CHEMISTRY METHOD 05/22/2024 1:27 PM [facility] BUN 19 5 - 25 mg/dL LAB CHEMISTRY METHOD 05/22/2024 1:27 PM [facility] Creatinine 0.79 0.50 - 1.10 mg/dL LAB CHEMISTRY METHOD 05/22/2024 1:27 PM [facility] eGFR 75 >=60 mL/min/1. 73m2 LAB CHEMISTRY METHOD 05/22/2024 1:27 PM [facility] Comment:Calculation based on the Chronic Kidney Disease Epidemiology Collaboration (CKD-EPI) equation refit without adjustment for race. BUN/Creatinine Ratio 24.1 LAB CHEMISTRY METHOD 05/22/2024 1:27 PM [facility] Calcium 9.9 8.5 - 10.5 mg/dL LAB CHEMISTRY METHOD 05/22/2024 1:27 PM [facility] AST (SGOT) 31 10 - 42 unit/L LAB CHEMISTRY METHOD 05/22/2024 1:27 PM [facility] ALT (SGPT) 25 10 - 60 unit/L LAB CHEMISTRY METHOD 05/22/2024 1:27 PM [facility] Alkaline Phosphatase 84 42 - 121 unit/L LAB CHEMISTRY METHOD 05/22/2024 1:27 PM [facility] Total Protein 7.0 6.0 - 8.0 g/dL LAB CHEMISTRY METHOD 05/22/2024 1:27 PM [facility] Albumin 3.9 3.2 - 5.0 g/dL LAB CHEMISTRY METHOD 05/22/2024 1:27 PM [facility] Total Bilirubin 1.3 0.0 - 1.4 mg/dL LAB CHEMISTRY METHOD 05/22/2024 1:27 PM [facility] Blood Venous blood specimen / Unknown Venipuncture / Unknown 05/22/2024 12:28 PM EDT 05/22/2024 12:57 PM EDT José Miguel Trent MD LAB BLOOD ORDERABLES Final Resu lt Performing Organization Address [facility] [address] [facility] Co de Phone Number [facility] [address] [place] [address], [place] [phone] * LDL cholesterol, direct (03/14/2024 12:00 AM EST) LDL Direct 83 <=100 mg/dL LAB CHEMISTRY METHOD 03/14/2024 10:13 PM EST [facility] Blood Venous blood specimen / Unknown 03/14/2024 03/14/2024 6:40 PM EST Duong MONTENEGRO LAB BLOOD ORDERABLES Final Res ult Performing Organization Address [facility] [address]/[facility] de Phone Number [facility] [address] [place] [address], [place] [phone] * Hemoglobin A1c (03/14/2024 12:00 AM EST) Hemoglobin A1C 6.0 <6.5 % LAB CHEMISTRY METHOD 03/15/2024 10:14 AM EST [facility] Mean Bld Glu Estim. 126 mg/dL LAB CHEMISTRY METHOD 03/15/2024 10:14 AM EST [facility] Blood Venous blood specimen / Unknown 03/14/2024 03/14/2024 6:40 PM EST us Duong MONTENEGRO LAB BLOOD ORDERABLES Final Res ult Performing Organization Address [facility] [address]/ZIP Co de Phone Number [facility] [address] [place] [address], [place] [phone] * IRWIN DEXA AXIAL SKELETON (11/23/2023 5:01 PM EDT) Anatomical Region Laterality Modality Mammography 11/23/2023 9:22 AM EDT Narrative 11/23/2023 5:01 PM EDT [facility] Diagnostic Imaging Department [address] [place] [id number] Patient: AZALEA BANERJEE John Ruiz/Age/Sex: 1940 - 83 - F Unit#: [id number] Location/Status: [facility]/REG CLI Mnemonic/[facility] Order[facility] Physician: ROBYN MARIE DO [facility] Dexa Axial Skeleton - 11/23/23947 Report Status:Signed History: Low estrogen state due to menopause. Personal history of fracture. Parent hip fracture. On alendronate and anastrozole. Comparison: 11/21/22 Findings: Bone densitometry is performed utilizing dual energy x-ray absorptiometry (DXA) in the [employer] unit. The lumbar spine and proximal femora are evaluated in the AP projection. The FRAX questionaire was completed. The results indicate low bone mass (osteopenia), with a right femoral neck T- score of -1.9. The Z score is 0.1, indicating bone mineral density within the range of normal for age. There has been no statistically significant change. The detailed DEXA report will be mailed to the referring physician's office. DualFemur FRAX: 10-year Probability of Fracture: Major Osteoporotic 36.5 percent Hip 22.3 percent. IMPRESSION: Osteopenia. [id number] Dictating Physician: INDIRA GOMEZ MD Electronically Signed by: INDIRA GOMEZ MD Dic Date/Time: 11/23/23 1700 Sign date/Time: 11/23/23 170 Procedure Note Indira Gomez MD - 12/13/2023 [facility] Diagnostic Imaging Department [address] [place] [id number] Patient: CHRISSAZALEA L /Age/Sex: 1940 - 83 - F Unit#: [id number] [facility] Mn[facility]onic[facility] Ordering Physician: ROBYN MARIE DO [facility] Dexa Axial Skeleton - 11/23/23947 Report Status:Signed History: Low estrogen state due to menopause. Personal history offracture. Parent hip fracture. On alendronate and anastrozole. Comparison: 11/21/22 Findings: Bone densitometry is performed utilizing dual energy x-ray absorptiometry(DXA) in the [employer] unit. The lumbar spine and proximal femora [...] 36.5 percent Hip 22.3 percent. IMPRESSION: Osteopenia. [id number] Dictating Physician: INDIRA GOMEZ MD Electronically Signed by: INDIRA GOMEZ MD Dic Date/Time: 11/23/231699 Sign date/Time: 11/23/231700 Robyn Marie DO IMG BI PROCEDURES Fin al Result from Last 3 Months or Most Recently Relevant to Health Maintenance Insurance [employer] Care Teams Elementary Supervisor Relationship Specialty Start Date End Date Michael Cristina MD [address] [place] [phone] PCP - General Internal Medicine 03/22/19
--- OUTSIDE RECORDS SUMMARY | 2024-10-10 10:09 | XMS_ITS | Clinical Summary ---
Author Organization [facility] Address [address] [place] [address] Care Team Providers Care Digital Program Manager Name Role Phone Michael Cristina MD Primary Care Provider [phone] Allergies Active Allergy Reactions Criticality Noted Date [...] 64 08/03/2023 9:37 AM EDT Temperature 36.8 C (98.3 F) 08/03/2023 9:37 AM EDT Respiratory Rate - - Oxygen Saturation 95% [...] 1-dose 75+ series) 2017 Influenza Vaccine (#1) 2024 2, 12/17/2010 Hepatitis B Vaccines Aged Out No long er eligible based on patient's age to complete this topic RSV Ped < 20 months Aged Out No longe r eligible based on patient's age to complete this topic Care Teams Digital Program Manager Relationship Specialty Start Date End Date Michael Cristina MD [address] [place] [address] PCP - General Internal Medicine 03/26/19
== END 2024-10-10 10:18 | disposition home or self-care (01) ==
LOC: HO.HSM 09:31
PROVIDERS: PCP Internal Medicine; Referring Provider Internal Medicine; Visit Provider Registered Nurse
DX: G25.81 Restless legs syndrome (principal); G62.9 Polyneuropathy, unspecified; G31.84 Mild cognitive impairment of uncertain or unknown etiology
CPT/HCPCS: 99214

== ENCOUNTER 2024-10-10 09:26 | Outpatient (REF) | payer MEDICARE, SELFPAY ==
--- OUTSIDE RECORDS SUMMARY | 2024-07-03 09:15 | XMS_ITS ---
Author Organization [facility] [place] Address [address] [place] [address] Care Team Providers Care Soil Fertility Extension Specialist Name Role Phone Duong Harrington Unavailable [phone] REASON FOR VISIT Follow-up Appt Encounters Encounter Location Date Provider Diagnosis [address] [place] [phone] 07/03/2024 Duong Harrington Plan Of Treatment Next Appt Details Provider Name:Teresa Farfan, 12/19/2024 09:30:00 AM, [address] [place] [address], [place] [address], [place], [address], [phone] Progress Notes * CHRISSYOLANDA COREASKIESHAOB: 3 (84 yo F)Acc No.[id number]:07/03/2024 Progress Notes Patient: SIMA DIAZ Provider: [place] MONTENEGRO :1940 A ge:83 Y S ex:Female Date:07/03/2024 Address:[address] [place] [address] Subjective: * Chief Complaints: * F ollow-up Appt * Ocular Surgical History: Objective: Vision Examination: * Electronic signature of Demarcus Harrington PA-C on 10/10/2024 at 11:21 AM EDT Sign off status: Pending * Provider: [place] MONTENEGRO Date: 07/03/2024 Generated for Judi ng/Fajustog/eTransmitting on: 0 10/10/2024 11:21 AM EDT
[2024-10-10 11:29] LABS: Iron 80 mcg/dL (30-160); Percent Iron Saturation 27 % (15-50); Total Iron Binding Capacity 298 mcg/dL (228-428); Unsaturated Iron Binding 218 ug/dL
== END 2024-10-10 09:27 | disposition home or self-care (01) ==
LOC: HO.LAB 09:26
PROVIDERS: PCP Internal Medicine; Referring Provider Internal Medicine; Visit Provider Registered Nurse
DX: G25.81 Restless legs syndrome (principal); G62.9 Polyneuropathy, unspecified; G31.84 Mild cognitive impairment of uncertain or unknown etiology
CPT/HCPCS: 36415; 83540; 99212

== ENCOUNTER 2024-12-02 09:31 | Outpatient (AMB) | payer MEDICARE, SELFPAY ==
--- OUTSIDE RECORDS SUMMARY | 2024-10-01 09:30 | XMS_ITS ---
Author Organization [facility] [place] Address [address] [facility] [address] [place] [address] Care Team Providers Care Member Services Coordinator Name Role Phone Teresa Farfan Unavailable [phone] Allergies Allergen (clinical drug ingredient) Drug/Non Drug Allergy documented on EMR Reaction Allergy Type Onset Date Status Substance with sulfonamide structure and antibacterial mechanism of action (substance) Sulfa Antibiotics Unknown Drug Allergy Active REASON FOR VISIT Follow-up Appt, insomnia, constipated for awhile , needs stronger meds for her restless legs Medications Medication SIG (Take, Route, Frequency, Duration) Notes Start Date End Date Status Calcium 600 MG Tablet 1 tablet with meal s Orally Twice a day Active Arimidex 1 MG Tablet 1 tablet Orally Onc e a day Active amLODIPine Besylate 5 MG Tablet Take 1 tablet by mouth once daily; Duration: 30 Active Alendronate Sodium 70 MG Tablet 1 tablet Orally once a week; Duration: 90 days Active Omeprazole 40 MG Capsule Delayed Release 1 capsule 1/2 to 1 hour before morning meal Orally Once a day Not-Taking Gabapentin 300 MG Capsule 1 capsule Oral ly at bedtime; Duration: 90 days 10/01/2024 Active Sertraline HCl 50 MG Tablet 1 tablet Orally Once a day Active rOPINIRole HCl 3 MG Tablet 1 tablet 1 to 3 hours before bedtime Orally Once a day Not-Taking Midodrine HCl 5 MG Tablet 1 tablet Orall y 3 times a day Active Lisinopril-hydroCHLOROthi azide 20-12.5 MG Tablet 1 tablet Orally Once a day Active Vitamin D3 25 MCG (1000 UT) Capsule 1 capsule Orally Once a day Active Sucralfate 1 GM Tablet 1 tablet on an em pty stomach Orally Twice a day Active Social History Section Notes: Smoking-former 50 years ago Alcohol- denies Caffeine- denies Problems Problem Type SNOMED Code ICD Code Onset Dates Problem Status W/U Status Risk Notes Problem Insomnia (980925805) 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 Vital Signs Blood pressure systolic 149 mm Hg 10/02/19 25 Blood pressure diastolic 63 mm Hg 025 Heart Rate 55 /min 10/01/2024 Respiratory Rate 12 /min 10/01/2024 Height 67 in 10/01/2024 Weight 164 lbs 10/01/2024 BMI 25.68 kg/m2 10/01/2024 Oximetry 96 % 10/01/2024 Height-cm 170.18 cm 10/01/2024 Weight-kg 74.39 kg 10/01/2024 Encounters Encounter Location Date Provider Diagnosis [facility] [place] [address] [facility] [address] [place] [address] 10/01/2024 Teresa Farfan Restless leg syndrome G25.81 Assessments Encounter Date Diagnosis (ICD Code) Assessment Notes Treatment Notes Treatment Clinical Notes Section Notes 10/01/2024 Restless leg syndrome (ICD-10 - G25.81) Plan Of Treatment Medication Medication Name Sig Start Date Stop Date Notes Alendronate Sodium 70 MG Tablet 1 tablet Orally once a week; Duration: 90 days Gabapentin 300 MG Capsule 1 capsule Oral ly at bedtime; Duration: 90 days 10/01/2024 Next Appt Details Provider Name:Teresa Farfan, 12/19/2024 09:30:00 AM, [address] [place] [address], [address] [facility], [place], [address], [phone] History and Physical Notes * HPI (History of Present Illness) Category Sub-Category Detail Notes Category Not es Depression screening PHQ-9 Little inte rest or pleasure in doing things: Not at all Feeling down, depressed, or hopeless: No t at all Trouble falling or staying asleep, or sl eeping too much: Nearly every day Feeling tired or having little energy: M ore than half the days Poor appetite or overeating: Not at all Feeling bad about yourself o r that you are a failure, or have let yourself or your family down: Not at all Trouble concentrating on thi ngs, such as reading the newspaper or watching television: Not at all Moving or speaking so slowly that other people could have noticed; or the opposite, being so fidgety or restless that you have been moving around a lot more than usual: Not at all Thoughts that you would be b ez off or of hurting yourself in some way: Not at all Total Score: 5 Interpretation: Mild Depression Progress Notes * EZE BANERJEEOB: 3 (84 yo F)Acc No.[id number]:10/01/2024 Progress Notes Patient: SIMA DIAZ Provider: Evan Farfan :1940 A ge:84 Y S ex:Female Date:10/01/2024 Address:[address] [place], [place] [id number] Subjective: * Chief Complaints: * F ollow-up ApptInsomnia, constipated for awhile , needs stronger meds for her restless legs * HPI: D epression screening: PHQ-9 L ittle interest or pleasure in doing things N ot at all, F eeling down, depressed, or hopeless N ot at all, T rouble falling or staying asleep, or sleeping too much N early every day, F eeling tired or having little energy M ore than half the days, P oor appetite or overeating N ot at all, F eeling bad about yourself or that you are a failure, or have let yourself or your family down N ot at all, T rouble concentrating on things, such as reading the newspaper or watching television N ot at all,?Moving or speaking so slowly that other people could have noticed; or the opposite, being so fidgety or restless that you have been moving around a lot more than usual N ot at all, T houghts that you would be better off or of hurting yourself in some way N ot at all, T otal Score 5 , I nterpretation M ild Depression. * Medical History: Hypertension Restless leg syndrome Medical History Verified * Surgical History: breast cancer- removed nodule-5-6 years ago Surgical History verified. * Hospitalization/Major Diagno stic Procedure: Denies Past Hospitalization. Hospitalization Verified. * Family History: 1 son(s) - healthy. . F amily History Verified.. Health Care Proxy- sister Brenna Ryder- [phone] Brother- Son Ryder-. * Social History: Social History Verified. S moking-former 50 years ago Alcohol- denies Caffeine- denies. * Medications: T akingVitamin D3 25 MCG (1000 UT) Capsule 1 capsule Orally Once a day Sucralfate 1 GM Tablet 1 tablet on an empty stomach Orally Twice a day Sertraline HCl 50 MG Tablet 1 tablet Orally Once a day Midodrine HCl 5 MG Tablet 1 tablet Orally 3 times a day Lisinopril-hydroCHLOROthiazide 20-12.5 MG Tablet 1 tablet Orally Once a day Calcium 600 MG Tablet 1 tablet with meals Orally Twice a day Arimidex 1 MG Tablet 1 tablet Orally Once a day Alendronate Sodium 70 MG Tablet 1 tablet Orally once a week amLODIPine Besylate 5 MG Tablet Take 1 tablet by mouth once daily Taking Vitamin D3 25 MCG (1000 UT) Capsule 1 capsule Orally Once a day Taking Sucralfate 1 GM Tablet 1 tablet on an empty stomach Orally Twice a day Taking Sertraline HCl 50 MG Tablet 1 tablet Orally Once a day Taking Midodrine HCl 5 MG Tablet 1 tablet Orally 3 times a day Taking Lisinopril-hydroCHLOROthiazide 20-12.5 MG Tablet 1 tablet Orally Once a day Taking Calcium 600 MG Tablet 1 tablet with meals Orally Twice a day Taking Arimidex 1 MG Tablet 1 tablet Orally Once a day Taking Alendronate Sodium 70 MG Tablet 1 tablet Orally once a week Taking amLODIPine Besylate 5 MG Tablet Take 1 tablet by mouth once daily Not-TakingrOPINIRole HCl 3 MG Tablet 1 tablet 1 to 3 hours before bedtime Orally Once a day Omeprazole 40 MG Capsule Delayed Release 1 capsule 1/2 to 1 hour before morning meal Orally Once a day Medication List reviewed and reconciled with the patientNot-Taking rOPINIRole HCl 3 MG Tablet 1 tablet 1 to 3 hours before bedtime Orally Once a day Not-Taking Omeprazole 40 MG Capsule Delayed Release 1 capsule 1/2 to 1 hour before morning meal Orally Once a day Medication List reviewed and reconciled with the patient * Allergies: S ulfa AntibioticsyesAllergies Verified. Objective: * Vitals: B P: 149/63 mm Hg, HR: 55 /min, RR: 12 /min, Oxygen sat %: 96 %, Ht: 67 in, Wt: 164 lbs, BMI: 25.68 Index, Wt-k.39 kg, Ht-cm: 170.18 cm, Body Surface Area: 1.87. Assessment: * Assessment: 1. R estless leg syndrome - G25.81 Plan: * Treatment: * Electronic signature of Rosanne her Farfan on 12/02/2024 at 10:51 AM EDT Sign off status: Pending * Provider: Evan Farfan Date: 0 10/01/2024 Generated for Judi osorio/Bryant/Kati on: 1 10:51 AM EDT
--- OUTSIDE RECORDS SUMMARY | 2024-10-30 12:30 | XMS_ITS ---
Author Organization [facility] [place] Address [address] [place] [address] Care Team Providers Care Director Maternal Child Name Role Phone Teresa Farfan Unavailable [phone] REASON FOR VISIT Medication management Medications Medication SIG (Take, Route, Frequency, Duration) Notes Start Date End Date Status Omeprazole 40 MG Capsule Delayed Release 1 capsule 1/2 to 1 hour before morning meal Orally Once a day Not-Taking rOPINIRole HCl 3 MG Tablet 1 tablet 1 to 3 hours before bedtime Orally Once a day Not-Taking amLODIPine Besylate 5 MG Tablet 1 tablet Orally daily; Duration: 90 days Active Alendronate Sodium 70 MG Tablet 1 tablet Orally once a week; Duration: 90 days Active Lisinopril-hydroCHLOROthi azide 20-12.5 MG Tablet 1 tablet Orally Once a day Active Midodrine HCl 5 MG Tablet 1 tablet Orall y 3 times a day Active Sertraline HCl 50 MG Tablet 1 tablet Orally Once a day Active Arimidex 1 MG Tablet 1 tablet Orally Onc e a day Active Calcium 600 MG Tablet 1 tablet with meal s Orally Twice a day Active Sucralfate 1 GM Tablet 1 tablet on an em pty stomach Orally Twice a day Active Vitamin D3 25 MCG (1000 UT) Capsule 1 capsule Orally Once a day Active Encounters Encounter Location Date Provider Diagnosis [facility], [address] [place] [address] 10/30/2024 Teresa Farfan Plan Of Treatment Next Appt Details Provider Name:Teresa Farfan, 12/19/2024 09:30:00 AM, [address] [facility], [address], [place], [address], [id number] Progress Notes * EZE BANERJEEOB: 3 (84 yo F)Acc No.[id number]:10/30/2024 Patient: SIMA DIAZ Provider: Evan Farfan :1940 A ge:84 Y S ex:Female Date:10/30/2024 Address:[address] [place] [address] Subjective: * Chief Complaints: * M edication management * Medications: T akingVitamin D3 25 MCG [...] a week amLODIPine Besylate 5 MG Tablet 1 tablet Orally daily Taking Vitamin D3 25 MCG (1000 [...] week Taking amLODIPine Besylate 5 MG Tablet 1 tablet Orally daily Not-TakingrOPINIRole HCl 3 MG Tablet 1 tablet 1 to 3 hours before bedtime Orally Once a day Omeprazole 40 MG Capsule Delayed Release 1 capsule 1/2 to 1 hour before morning meal Orally Once a day Not-Taking rOPINIRole HCl 3 MG Tablet 1 tablet 1 to 3 hours before bedtime Orally Once a day Not-Taking Omeprazole 40 MG Capsule Delayed Release 1 capsule 1/2 to 1 hour before morning meal Orally Once a day DiscontinuedGabapentin 300 MG Capsule 1 capsule Orally at bedtime Discontinued Gabapentin 300 MG Capsule 1 capsule Orally at bedtime * Electronic signature of Rosanne Farfan on 12/02/2024 at 10:52 AM EDT Sign off status: Pending * Provider: Evan Farfan Date: 0 10/30/2024 Generated for Judi osorio/Bryant/Kati on: 1 10:52 AM EDT
--- OUTSIDE RECORDS SUMMARY | 2024-11-04 11:45 | XMS_ITS ---
Author Organization [facility], [place] Address [address] [place] [address] Care Team Providers Care Butcher All Round Name Role Phone Teresa Farfan Unavailable [phone] REASON FOR VISIT Medication Check In Medications Medication SIG (Take, Route, Frequency, Duration) Notes Start Date End Date Status Arimidex 1 MG Tablet 1 tablet Orally Onc e a day Active Lisinopril-hydroCHLOROthi azide 20-12.5 MG Tablet 1 tablet Orally Once a day Active Calcium 600 MG Tablet 1 tablet with meal s Orally Twice a day Active Sertraline HCl 50 MG Tablet 1 tablet Orally Once a day Active Midodrine HCl 5 MG Tablet 1 tablet Orall y 3 times a day Active amLODIPine Besylate 5 MG Tablet 1 tablet Orally daily; Duration: 90 days Active Vitamin D3 25 MCG (1000 UT) Capsule 1 capsule Orally Once a day Active Sucralfate 1 GM Tablet 1 tablet on an em pty stomach Orally Twice a day Active rOPINIRole HCl 3 MG Tablet 1 tablet 1 to 3 hours before bedtime Orally Once a day Not-Taking Omeprazole 40 MG Capsule Delayed Release 1 capsule 1/2 to 1 hour before morning meal Orally Once a day Not-Taking Alendronate Sodium 70 MG Tablet 1 tablet Orally once a week; Duration: 90 days Active Encounters Encounter Location Date Provider Diagnosis [facility], [place] [address] [place] [address] 11/04/2024 Teresa Farfan Plan Of Treatment Next Appt Details Provider Name:Teresa Farfan, 12/19/2024 09:30:00 AM, [address] [facility], [address], [place], [address], [id number] Progress Notes * EZE BANERJEEOB: 3 (84 yo F)Acc No.[id number]:11/04/2024 Patient: SIMA DIAZ Provider: Evan Farfan :1940 A ge:84 Y S ex:Female Date:11/04/2024 Address:[address] [place] [address] Subjective: * Chief Complaints: * M edication Check In * Medications: T akingVitamin D3 25 MCG [...] before morning meal Orally Once a day * Electronic signature of Rosanne Farfan on 12/02/2024 at 10:51 AM EDT Sign off status: Pending * Provider: Evan Farfan Date: 0 11/04/2024 Generated for Judi osorio/Bryant/Kati on: 1 10:51 AM EDT
--- OUTSIDE RECORDS SUMMARY | 2024-11-05 12:15 | XMS_ITS ---
Author Organization [facility], [place] Address [address] [place] [address] Care Team Providers Care Metal Fitter Name Role Phone Teresa Farfan Unavailable [phone] REASON FOR VISIT Medication management Medications Medication SIG (Take, Route, Frequency, Duration) Notes Start Date End Date Status Arimidex 1 MG Tablet 1 tablet Orally Onc e a day Active rOPINIRole HCl 3 MG Tablet 1 tablet 1 to 3 hours before bedtime Orally Once a day Not-Taking Omeprazole 40 MG Capsule Delayed Release 1 capsule 1/2 to 1 hour before morning meal Orally Once a day Not-Taking Alendronate Sodium 70 MG Tablet 1 tablet Orally once a week; Duration: 90 days Active amLODIPine Besylate 5 MG Tablet 1 tablet Orally daily; Duration: 90 days Active Sucralfate 1 GM Tablet 1 tablet on an em pty stomach Orally Twice a day Active Sertraline HCl 50 MG Tablet 1 tablet Orally Once a day Active Calcium 600 MG Tablet 1 tablet with meal s Orally Twice a day Active Midodrine HCl 5 MG Tablet 1 tablet Orall y 3 times a day Active Lisinopril-hydroCHLOROthi azide 20-12.5 MG Tablet 1 tablet Orally Once a day Active Vitamin D3 25 MCG (1000 UT) Capsule 1 capsule Orally Once a day Active Encounters Encounter Location Date Provider Diagnosis [facility], [address] [place] [address] 11/05/2024 Teresa Farfan Plan Of Treatment Next Appt Details Provider Name:Teresa Farfan, 12/19/2024 09:30:00 AM, [address] [facility], [address], [place], [address], [id number] Progress Notes * EZE BANERJEEOB: 3 (84 yo F)Acc No.[id number]:11/05/2024 Patient: SIMA DIAZ Provider: Evan Farfan :1940 A ge:84 Y S ex:Female Date:11/05/2024 Address:[address] [place] [address] Subjective: * Chief Complaints: * M edication [...] Pending * Provider: Evan Farfan Date: 0 11/05/2024 Generated for Judi osorio/Bryant/eTransmitting on: 1 10:52 AM EDT
--- OUTSIDE RECORDS SUMMARY | 2024-11-18 12:00 | XMS_ITS ---
Author Organization [facility], [place] Address [address] [place] [address] Care Team Providers Care Electric Organ Inspector And Repairer Name Role Phone Teresa Farfan Unavailable [phone] Allergies Allergen (clinical drug ingredient) Drug/Non Drug Allergy documented on EMR Reaction Allergy Type Onset Date Status gabapentin Gabapentin Unknown Drug Allergy Activ e Substance with sulfonamide structure and antibacterial mechanism of action (substance) Sulfa Antibiotics Unknown Drug Allergy Active REASON FOR VISIT meds to help sleep Medications Medication SIG (Take, Route, Frequency, Duration) Notes Start Date End Date Status amLODIPine Besylate 5 MG Tablet 1 tablet Orally daily; Duration: 90 days Active rOPINIRole HCl 3 MG Tablet 1 tablet 1 to 3 hours before bedtime Orally Once a day Not-Taking Arimidex 1 MG Tablet 1 tablet Orally Onc e a day Active Alendronate Sodium 70 MG Tablet 1 tablet Orally once a week; Duration: 90 days Active Omeprazole 40 MG Capsule Delayed Release 1 capsule 1/2 to 1 hour before morning meal Orally Once a day Not-Taking Sucralfate 1 GM Tablet 1 tablet on an em pty stomach Orally Twice a day Active Sertraline HCl 50 MG Tablet 1 tablet Orally Once a day Active Lisinopril-hydroCHLOROthi azide 20-12.5 MG Tablet 1 tablet Orally Once a day Active Calcium 600 MG Tablet 1 tablet with meal s Orally Twice a day Active Midodrine HCl 5 MG Tablet 1 tablet Orall y 3 times a day Active Vitamin D3 25 MCG (1000 UT) Capsule 1 capsule Orally Once a day Active Social History Section Notes: Smoking-former 50 years ago Alcohol- denies Caffeine- denies Encounters Encounter Location Date Provider Diagnosis [facility], [address] [address] 11/18/2024 Teresa Farfan Plan Of Treatment Next Appt Details Provider Name:Teresa Farfan, 12/19/2024 09:30:00 AM, [address] [facility], [address], [place], [address], [id number] Progress Notes * EZE BANERJEEOB: 3 (84 yo F)Acc No.[id number]:11/18/2024 Patient: SIMA DIAZ Provider: Evan Farfan :1940 A ge:84 Y S ex:Female Date:11/18/2024 Address:[address] [place], [place] [id number] Subjective: * Chief Complaints: * M eds to help sleep * Medical History: Hypertension Restless leg syndrome * Social History: Social History Verified. S [...] morning meal Orally Once a day * Allergies: S ulfa AntibioticsGabapentinyesAllergies Verified. * Electronic signature of Rosanne Farfan on 12/02/2024 at 10:52 AM EDT Sign off status: Pending * Provider: Evan Farfan Date: 0 11/18/2024 Generated for Judi osorio/Bryant/Kati on: 1 10:52 AM EDT
--- NOTE | 2024-12-02 09:34 | A.OFFVIS_ITS ---
Intake Visit Reasons: 2m RLS, PN, MCI Allergies ropinirole Allergy (Unknown, Verified 12/02/24 09:37) Hallucinations Sulfa (Sulfonamide Antibiotics) (SULFA (SULFONAMIDE ANTIBIOTICS)) Allergy (Unknown, Unverified 12/02/24 09:37) HIVES Medication List - Last Reconciled 12/02/24 by Vickie Hartley, MARVIN alendronate 70 mg PO QWEEK amlodipine 5 mg PO DAILY lisinopril-hydrochlorothiazide 20-12.5 mg 1 tab PO DAILY sertraline 50 mg PO DAILY timolol maleate 0.5% drps ophthalmic (eye) HPI Comments Details: RLS symptoms continue with jumping feeling in legs, worse at night, and affecting sleep. She felt better if she moved her legs and got up and walked around. She was unable to tolerate increased dose of gabapentin due to GI side effects (diarrhea) and stopped medication. She did not have symptom relief with lower dose. She was taking iron, but did not notice any change in symptoms. She also reported intermittent numbness and tingling in legs up to knees, along with achy-type pain, that was worse at night, but could also happen during the day. Sleep was not so good. Her PCP ordered doxepin, but cost was too much and she was waiting for alternative. She tried melatonin, but that did not work. Balance was off and she occasionally tripped, but no falls. She completed PT and was using L foot brace, but did not think it helped much. Memory was stable. RLS symptoms bothersome, no relief with gabapentin 100mg-300mg. Gets jumpy feeling and urge to move legs, and feels better if she moves legs or gets up and walks around. She was also having some burning pain in legs, usually at night time, along with some occasional numbness and tingling. Sleep was not so good due to RLS symptoms and pain. Memory was about the same. She sometimes forgot where she put things around the house and would eventually find it later on. She was admitted to [facility] at the end on 04/2024 for hallucinations, seeing bugs in her house, which was found to be a side effect from ropinirole. No further hallucinations after medication was stopped. Had fall in 02/2024 when using cane without significant injury. Legs felt weaker, L > R. Difficulty with curbs and going up stairs. Has left leg brace which seems to help some. Occasional numbness and discomfort in feet and legs. She was concerned memory is not so good over the past few months. She is more forgetful and misplaces things around the house. She lives alone, cooks and cleans. Driving without issue, has not gotten lost.?Around 2019, she started with increased weakness to both lower and occasional numbness in toes, L > R. [facility] Medical History (Updated 10/10/24 @ 09:57 by Vickie Hartley, MARVIN) Extrapyramidal and movement disorder MCI (mild cognitive impairment) Osteoarthritis Hypertension Myopathy Peripheral neuropathy Review of Systems Const Denies chills, Denies daytime sleepiness, Reports difficulty sleeping, Denies fatigue, Denies fever(s), Denies frequent falls, Denies headache(s), Denies incr eased appetite, Denies poor appetite, Denies snoring, Denies weakness, Denies weight gain and Denies weight loss Eyes Denies loss of vision ENT Denies vertigo, Denies dizziness, Denies headache(s) and Denies neck pain Card Denies chest pain at rest, Denies chest pain with activity, Denies syncope, Denies leg edema, Denies palpitations, Denies dyspnea and Denies dyspnea on exertion Resp Denies cough, Denies dyspnea, Denies dyspnea on exertion and Denies snoring GI Denies abdominal pain, Denies constipation, Denies heartburn, Denies diarrhea and Denies nausea Denies urinary frequency, Denies urinary incontinence and Denies urinary urgency Musc Reports abnormal gait (balance difficulty), Reports back pain, Denies myalgias, Denies arthralgias, Denies neck pain, Reports numbness and Reports tingling Neuro Reports abnormal gait (balance difficulty), Denies vertigo, Denies dizziness, Denies syncope, Denies frequent falls, Denies headache(s), Denies lack of coordination, Denies loss of vision, Reports memory loss, Reports numbness, Denies Other visual disturbances, Reports restless legs, Denies seizure-like activity, Reports tingling, Denies paresthesias, Denies tremor(s) and Denies wea kness Psych Denies anxiety, Denies depression, Denies auditory hallucinations, Reports memory loss and Reports visual hallucinations Endo Denies fatigue and Denies palpitations Physical Exam Const Other: General Appearance:? normal, in no acute distress. Heart:? S1, S2 normal, no murmurs. Lungs:? clear anteriorly and posteriorly. Musculoskeletal:? normal. Extremities:? no edema. Psych:? alert, as below. Neuro Other: Abnormal Neurological Findings:?Bilateral hip flexor weakness graded at 4/5. Weakness in the glutei with difficulty getting up from the chair. Bilateral dorsiflexor and everter weakness in the feet graded at 4 +/5. Quadriceps hamstrings are normal. No atrophy or fasciculations. Absent reflexes in the lower extremities. Minimal blunting of pinprick sensation in the toes. L foot brace. MMS Mental Status: alert, as below. Cranial Nerves: Pupils are equal, round, and reactive to light. External ocular muscles are intact. Visual burton are full, no ptosis. Face is symmetrical, no facial weakness or droop. Facial sensations are normal. Tongue protrudes in midline. Palate elevates symmetrically. Shoulder shrugging is normal Motor Examination: As above. Sensory Exam: As above. Coordination: No ataxia. No titubation. Gait Exam: Slow and cautious. Cerebellar Signs: [id number] is okay. Extrapyramidal System: No tremor, rigidity with normal facial expressions. No bradykinesia. No bradyphrenia. Normal arm swing and posture. No propulsion or retropulsion. Speech: Normal. No dysphasia or dysarthria. MMSE Level of Consciousness: Alert. Orientation: Knows correct year, month, date, day and season. Knows correct city, county and state. Knows correct location and floor. Registration: Able to register 3 objects. Attention: Serial 7's performed accurately to 86 Recall: Able to recall 3 out of 3 objects. Language: Normal spontaneous speech, fluency, repetition, naming, comprehension, reading, and writing. Total Score: 27/30. Results Reviewed Results Reviewed: Laboratory Tests 04/09/24 10/10/24 15:00 10:39 Iron 80 TIBC 298 % Saturation 27 Unsat Iron Binding 218 Vitamin B12 277 Folate 10.8 TSH 1.07 04/2024 CT brain: Mild diffuse cerebral volume loss 04/26/24 EEG- WNL. 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 EMG in the left L4-S1 innervated muscles is consistent with neuropathic changes. 04/21 Labs normal. Assessment & Plan Assessment & Plan (1) RLS (restless legs syndrome): Code(s): G25.81 - Restless legs syndrome Category: Medical Plan: Lab results reviewed, iron profile okay. She had side effects (diarrhea) with gabapentin 600mg and stopped medication, medication was discontinued. No improvement with lower dose of gabapentin. She had side effects (hallucinations) with ropinirole. (2) Peripheral neuropathy: Code(s): G62.9 - Polyneuropathy, unspecified Category: Medical Qualifiers: Peripheral neuropathy type: polyneuropathy, unspecified Qualified Code(s): G62.9 - Polyneuropathy, unspecified Plan: Start amitriptyline 10mg 1 tablet at bedtime x1 week, then 2 tablets at bedtime, use/side effects reviewed. (3) MCI (mild cognitive impairment): Code(s): G31.84 - Mild cognitive impairment of uncertain or unknown etiology Category: Medical Plan: Stay physically and socially active. Plan Meds tried: ropinirole (side effect of hallucinations), gabapentin (300mg - insufficient, 600mg - GI s/e). Medications: New amitriptyline 10 mg orally 1 tablet at bedtime x1 week, then 2 tablets at b edtime; 60 tabs 3RF 30 days Coding Level of Care Code Est Pt Level 4 (41042) Diagnoses RLS (restless legs syndrome) G25.81 Peripheral polyneuropathy G62.9 Peripheral neuropathy type: polyneuropathy, unspecified MCI (mild cognitive impairment) G31.84
--- OUTSIDE RECORDS SUMMARY | 2024-12-02 10:51 | XMS_ITS | Clinical Summary ---
Author Organization [facility] Address [address] [place] [address] Phone Care Team Providers Care Pit Shoveler Name Role Phone Michael Cristina MD Primary Care Provider [phone] Allergies Active Allergy Reactions Criticality Noted Date Comments Sulfites 04/17/2019 Medications alendronate (FOSAMAX) 70 mg tablet Take 1 tablet (70 mg total) by mouth every 7 days. Take with water on empty stomach/Nothi ng by mouth and do not lie down for next 30 minutes Active calcium carb/vit D3/minerals (CALCIUM-VITAMI N D [...] by mouth 1 (one) time each day. 04/06/2024 Active gabapentin (NEURONTIN) 100 mg capsule Take 1 capsule (100 mg total) by mouth at bedtime. at bedtime 08/31/2024 Active cholecalciferol (VITAMIN D-3) 50 mcg (2,000 unit) tablet Take by mouth. Active Active Problems Problem Noted Date Diagnosed Date Osteopenia of multiple sites 02/08/2024 Use of anastrozole 02/08/2024 Malignant neoplasm of overla pping sites of left breast in female, estrogen receptor positive ([facility] V24, [facility] V28) 05/05/2023 Encounters Date Type Department Care Team Description 09/19/2024 1:45 PM EDT Office Visit [facility] Hematology Oncology [address] [place] [address] Robyn Marie, Malignant neoplasm of overlapping sites of left breast in female, estrogen receptor positive ([facility] V24, [facility] V28) (Primary Dx); Osteopenia, unspecified location 09/19/2024 Telephone [facility] Hematology Oncology [address] [place] [address] Colleen Franco RN from Last 3 Months Surgical History Surgery Date Site/Laterality Comments EYE SURGERY PROCEDURE: HISTORICAL EYE SURGERY COLONOSCOPY 01/05/20 10 PROCEDURE: HISTORICAL COLONOSCOPY; COMMENT: Dr Youssef - cecal AVM, diverticulosis, internal hemorrhoids ESOPHAGOGASTRODUODENOSCOPY 02/13/20 12 PROCEDURE: UT ESOPHAGOGASTRODUODENOSCOPY TRANSORAL DIAGNOSTIC; COMMENT: normal on PPI [...] History Medical History Date Comments Breast cancer ([facility] V24, [facility] V28) Family History Medical History Relation Name [...] AM EST [facility]ment [facility] [address] [address] 04/30/2025 1:30 PM EST Office Visit Breast [address] [address] Vanessa Barnes MD [address] [place] [phone] 09/18/2025 10:00 AM EDT Office Visit [facility] Hematology Oncology [address] [place] [phone] Robyn Marie DO [address] [place] [phone] Health Maintenance Due Date Last Done Comments [...] hyperlipidemia Type 2 diabetes mellitus without complications ([facility]/HCC) Major depressive disorder, single episode, unspecified LDL CHOLESTEROL, DIRECT Routine 03/14/2024 12:00 AM EST Mixed hyperlipidemia Type 2 diabetes mellitus without complications (CMS/HCC) Major depressive disorder, single episode, unspecified IRWIN DEXA AXIAL SKELETON Routine 11/23/2023 5:01 PM EDT Other specified disorders of bone density and structure, right thigh from Last 3 Months or Most Recently Relevant to Health Maintenance Results * (ABNORMAL) Comprehensive metabolic panel (05/22/2024 12:28 PM EDT) Sodium 143 133 - 145 mmol/L LAB CHEMISTRY METHOD 05/22/2024 1:27 PM [facility] Potassium 4.0 3.5 - 5.5 mmol/L LAB CHEMISTRY METHOD 05/22/2024 1:27 PM [facility] Chloride 107 96 - 110 mmol/L LAB CHEMISTRY METHOD 05/22/2024 1:27 PM [facility] CO2 30 21 - 32 mmol/L LAB CHEMISTRY METHOD 05/22/2024 1:27 PM [facility] Anion Gap 6 3 - 11 LAB CHEMISTRY METHOD 05/22/2024 1:27 PM [facility] Glucose 115(H) 70 - 100 mg/dL LAB CHEMISTRY METHOD 05/22/2024 1:27 PM [facility] BUN 19 5 - 25 mg/dL LAB CHEMISTRY METHOD 05/22/2024 1:27 PM [facility] Creatinine 0.79 0.50 - 1.10 mg/dL LAB CHEMISTRY METHOD 05/22/2024 1:27 PM [facility] eGFR 75 >=60 mL/min/1. 73m2 LAB CHEMISTRY METHOD 05/22/2024 1:27 PM EDT [facility] Comment:Calculation based on the Chronic Kidney Disease Epidemiology Collaboration (CKD-EPI) equation refit without adjustment for race. BUN/Creatinine Ratio 24.1 LAB CHEMISTRY METHOD 05/22/2024 1:27 PM [facility] Calcium 9.9 8.5 - 10.5 mg/dL LAB CHEMISTRY METHOD 05/22/2024 1:27 PM [facility] AST (SGOT) 31 10 - 42 unit/L LAB CHEMISTRY METHOD 05/22/2024 1:27 PM [facility] ALT (SGPT) 25 10 - 60 unit/L LAB CHEMISTRY METHOD 05/22/2024 1:27 PM [facility] Alkaline Phosphatase 84 42 - 121 unit/L LAB CHEMISTRY METHOD 05/22/2024 1:27 PM [facility] Total Protein 7.0 6.0 - 8.0 g/dL LAB CHEMISTRY METHOD 05/22/2024 1:27 PM [facility] Albumin 3.9 3.2 - 5.0 g/dL LAB CHEMISTRY METHOD 05/22/2024 1:27 PM [facility] Total Bilirubin 1.3 0.0 - 1.4 mg/dL LAB CHEMISTRY METHOD 05/22/2024 1:27 PM [facility] Blood Venous blood specimen / Unknown Venipuncture / Unknown 05/22/2024 12:28 PM EDT 05/22/2024 12:57 PM EDT us José Miguel Trent MD LAB BLOOD ORDERABLES Final Resu lt [facility] [address] [place] [address], * LDL cholesterol, direct (03/14/2024 12:00 AM EST) LDL Direct 83 <=100 mg/dL LAB CHEMISTRY METHOD 03/14/2024 10:13 PM EST [facility] Blood Venous blood specimen / Unknown 03/14/2024 03/14/2024 6:40 PM EST Duong MONTENEGRO LAB BLOOD ORDERABLES Final Res ult Performing Organization Address City/[facility]/ZIP Co de Phone Number [facility] [address] [place] [address], [place] [phone] * Hemoglobin A1c (03/14/2024 12:00 AM EST) Hemoglobin A1C 6.0 <6.5 % LAB CHEMISTRY METHOD 03/15/2024 10:14 AM EST [facility] Mean Bld Glu Estim. 126 mg/dL LAB CHEMISTRY METHOD 03/15/2024 10:14 AM EST [facility] Blood Venous blood specimen / Unknown 03/14/2024 03/14/2024 6:40 PM EST us Duong MONTENEGRO LAB BLOOD ORDERABLES Final Res ult Performing Organization Address [facility]/ZIP Co de Phone Number [facility] [address] [place] [address], [place] [phone] * IRWIN DEXA AXIAL SKELETON (11/23/2023 5:01 PM EDT) Anatomical Region Laterality Modality Mammography 11/23/2023 9:22 AM EDT Narrative 11/23/2023 5:01 PM EDT [facility] Diagnostic Imaging Department [address] [place] [address] Patient: AZALEA BANERJEE.O.B./Age/Sex: 1940 - 83 - F Unit#: [id number] Location/Status: SPDIMAM/REG CLI Mnemonic[facility] Ordering Physician: ROBYN MARIE DO Irwin Dexa Axial Skeleton - 11/23/23947 Report Status:Signed History: Low estrogen state due to menopause. Personal history of fracture. Parent hip fracture. On alendronate and anastrozole. Comparison: 11/21/22 Findings: Bone densitometry is performed utilizing dual energy x-ray absorptiometry (DXA) in the [employer] unit. The lumbar spine and proximal femora [...] 36.5 percent Hip 22.3 percent. IMPRESSION: Osteopenia. [id number] Dictating Physician: INDIRA GOMEZ MD Electronically Signed by: INDIRA GOMEZ MD Dic Date/Time: 11/23/23 1700 Sign date/Time: 11/23/23 1701 Procedure Note Indira Gomez MD - 12/13/2023 [facility] Diagnostic Imaging Department [address] [place] [address] Patient: CHRISSAZALEA L /Age/Sex: 1940 - 83 - F Unit#: [id number] Location/Status: SPDIMAM/REG CLI Mnemonic/Ordering Site: [facility] Ordering Physician: ROBYN MARIE DO Irwin Dexa Axial Skeleton - 11/23/23947 Report Status:Signed History: Low estrogen state due to menopause. Personal history offracture. Parent hip fracture. On alendronate and anastrozole. Comparison: 11/21/22 Findings: Bone densitometry is performed utilizing dual energy x-ray absorptiometry(DXA) in the [employer] unit. The lumbar spine and proximal femora [...] 36.5 percent Hip 22.3 percent. IMPRESSION: Osteopenia. [id number] Dictating Physician: INDIRA GOMEZ MD Electronically Signed by: INDIRA GOMEZ MD Dic Date/Time: 11/23/23 170 Sign date/Time: 11/23/23 170 Robyn Marie DO IMG BI PROCEDURES Fin al Result from Last 3 Months or Most Recently Relevant to Health Maintenance Insurance [employer] Care Teams Pit Shoveler Relationship Specialty Start Date End Date Michael Cristina MD [address] [place] [phone] PCP - General Internal Medicine 03/22/19
--- OUTSIDE RECORDS SUMMARY | 2024-12-02 10:52 | XMS_ITS | Encounter Summary ---
Author Organization [facility] Address [address] [place] [address] Care Team Providers Care Senior Oracle Soa Developer Name Role Phone Michael Cristina MD Primary Care Provider [phone] Encounter Details Date Type Department Care Team (Latest Contact Info) Description 03/14/2024 Lab Requisition [facility] - Main Lab [address] [place] [address] Duong Harrington PA 299 [facility] [place] [address] [place] [address] Mixed hyperlipidemia; Type 2 diabetes mellitus without complications (CMS/HCC V24, CMS/HCC V28); Major depressive disorder, single episode, unspecified Social [...] Orientation Straight 05/22/2024 2: 12 PM EDT documented as of this encounter Plan of Treatment Upcoming Encounters Date Type Department Care Team (Late st Contact Info) Description 04/21/2025 9:00 AM EST [facility]ointment [facility] [address] [phone] 04/30/2025 1:30 PM EST Office Visit Breast [facility] [address] [place] [phone] Vanessa Barnes MD [address] [place] [address] 09/18/2025 10:00 AM EDT Office Visit [facility] Hematology Oncology [address] [place] [address] Thi Castillo, [address] [place] [address] documented as of this encounter Procedures Procedure [...] Hold for add-ons. 03/14/2024 8:01 PM EST [facility] Comment:Auto resulted. Blood Venous blood specimen / Unknown 03/14/2024 03/14/2024 6:40 PM EST us Duong MONTENEGRO LAB BLOOD ORDERABLES Final Res ult Performing Organization Address [facility]/ZIP Co de Phone Number [facility] [address] [place] [address], [place] [phone] * Hemoglobin A1c (03/14/2024 12:00 AM EST) Pathologist [facility] Hemoglobin A1C 6.0 <6.5 % LAB CHEMISTRY METHOD 03/15/2024 10:14 AM EST [facility] Mean Bld Glu Estim. 126 mg/dL LAB CHEMISTRY METHOD 03/15/2024 10:14 AM EST [facility] Blood Venous blood specimen / Unknown 03/14/2024 03/14/2024 6:40 PM EST us Duong MONTENEGRO LAB BLOOD ORDERABLES Final Res ult Performing Organization Address City/[facility]/ZIP Co de Phone Number [facility] [address] [place] [address], [place] [phone] * Creatinine (03/14/2024 12:00 AM EST) Pathologist [facility] Creatinine 0.96 0.50 - 1.10 mg/dL LAB CHEMISTRY METHOD 03/14/2024 9:56 PM EST [facility] eGFR 60 >=60 mL/min/1. 73m2 LAB CHEMISTRY METHOD 03/14/2024 9:56 PM EST [facility] Comment:Calculation based on the Chronic Kidney Disease Epidemiology Collaboration (CKD-EPI) equation refit without adjustment for race. Blood Venous blood specimen / Unknown 03/14/2024 03/14/2024 6:40 PM EST us Duong MONTENEGRO LAB BLOOD ORDERABLES Final Res ult Performing Organization Address City/[facility]/ZIP Co de Phone Number [facility] [address] [place] [address], [place] [phone] * BUN (03/14/2024 12:00 AM EST) BUN 23 5 - 25 mg/dL LAB CHEMISTRY METHOD 03/14/2024 9:56 PM EST [facility] Blood Venous blood specimen / Unknown 03/14/2024 03/14/2024 6:40 PM EST Duong MONTENEGRO LAB BLOOD ORDERABLES Final Res ult Performing Organization Address [facility]/[employer] Co de Phone Number [facility] [address] [place] [address], [place] [phone] * LDL cholesterol, direct (03/14/2024 12:00 AM EST) LDL Direct 83 <=100 mg/dL LAB CHEMISTRY METHOD 03/14/2024 10:13 PM EST [facility] Blood Venous blood specimen / Unknown 03/14/2024 03/14/2024 6:40 PM EST Duong MONTENEGRO LAB BLOOD ORDERABLES Final Res ult Performing Organization Address City/[facility]/ZIP Co de Phone Number [facility] [address] [place] [address], [place] [phone] * Hepatic function panel (03/14/2024 12:00 AM EST) Total Protein 7.6 6.0 - 8.0 g/dL LAB CHEMISTRY METHOD 03/14/2024 10:13 PM [facility] Albumin 4.1 3.2 - 5.0 g/dL LAB CHEMISTRY METHOD 03/14/2024 10:13 PM [facility] Total Bilirubin 1.2 0.0 - 1.4 mg/dL LAB CHEMISTRY METHOD 03/14/2024 10:13 PM [facility] Bilirubin, Direct 0.3 0.0 - 0.3 mg/dL LAB CHEMISTRY METHOD 03/14/2024 10:13 PM [facility] Bilirubin, Indirect 0.9 0.0 - 1.1 mg/dL LAB CHEMISTRY METHOD 03/14/2024 10:13 PM [facility] ALT (SGPT) 20 10 - 60 unit/L LAB CHEMISTRY METHOD 03/14/2024 10:13 PM [facility] AST (SGOT) 19 10 - 42 unit/L LAB CHEMISTRY METHOD 03/14/2024 10:13 PM [facility] Alkaline Phosphatase 89 42 - 121 unit/L LAB CHEMISTRY METHOD 03/14/2024 10:13 PM [facility] Blood Venous blood specimen / Unknown 03/14/2024 03/14/2024 6:40 PM EST us Duong MONTENEGRO LAB BLOOD ORDERABLES Final Res ult [facility] [address] [place] [address], [place] [phone] * Lipid panel with reflex to direct LDL (03/14/2024 12:00 AM EST) Cholesterol 140 0 - 200 mg/dL LAB CHEMISTRY METHOD 03/14/2024 10:13 PM [facility] Triglycerides 79 0 - 150 mg/dL LAB CHEMISTRY METHOD 03/14/2024 10:13 PM [facility] HDL 44 >=40 mg/dL LAB CHEMISTRY METHOD 03/14/2024 10:13 PM [facility] LDL Calculated 80 0 - 100 mg/dL LAB CHEMISTRY METHOD 03/14/2024 10:13 PM [facility] VLDL Cholesterol Mega 15.8 mg/dL LAB CHEMISTRY METHOD 03/14/2024 10:13 PM [facility] Non HDL Chol. (LDL+VLDL) 96 <145 mg/dL LAB CHEMISTRY METHOD 03/14/2024 10:13 PM [facility] Chol/HDL Ratio 3.2 0.0 - 4.4 LAB CHEMISTRY METHOD 03/14/2024 10:13 PM [facility] Blood Venous blood specimen / Unknown 03/14/2024 03/14/2024 6:40 PM EST us Duong MONTENEGRO LAB BLOOD ORDERABLES Final Res ult [facility] [address] [place] [address], * Electrolyte panel (03/14/2024 12:00 AM EST) Sodium 138 133 - 145 mmol/L LAB CHEMISTRY METHOD 03/14/2024 10:13 PM [facility] Potassium 3.8 3.5 - 5.5 mmol/L LAB CHEMISTRY METHOD 03/14/2024 10:13 PM [facility] Chloride 104 96 - 110 mmol/L LAB CHEMISTRY METHOD 03/14/2024 10:13 PM [facility] CO2 27 21 - 32 mmol/L LAB CHEMISTRY METHOD 03/14/2024 10:13 PM [facility] Anion Gap 7 3 - 11 LAB CHEMISTRY METHOD 03/14/2024 10:13 PM EST [facility] Blood Venous blood specimen / Unknown 03/14/2024 03/14/2024 6:40 PM EST us Duong MONTENEGRO LAB BLOOD ORDERABLES Final Res ult [facility] [address] [place] [address], documented in this encounter Visit Diagnoses Diagnosis Mixed hyperlipidemia Type 2 diabetes mellitus without complications (CMS/HCC V24, CMS/HCC V28) Major depressive disorder, single episode, unspecified Encounter for screening mammogram for breast cancer documented in this encounter Care Teams Senior Oracle Soa Developer Relationship Specialty Start Date End Date Michael Cristina MD [address] [address] PCP - General Internal Medicine 03/22/19 documented as of this encounter
--- OUTSIDE RECORDS SUMMARY | 2024-12-02 10:52 | XMS_ITS | Patient Health Record ---
Author Organization [facility] [place] Address [address] [place] [address] Care Team Providers Care Wound Treatment Rn Name Role Phone Duong Harrington Unavailable [phone] Migration, Provider Unavailable Unavailable Teresa Farfan Unavailable [phone] Allergies Allergen (clinical drug ingredient) Drug/Non Drug Allergy documented on EMR Reaction Allergy Type Onset Date Status gabapentin Gabapentin Unknown Drug Allergy Activ e Substance with sulfonamide structure and antibacterial mechanism of action (substance) Sulfa Antibiotics Unknown Drug Allergy Active Reason For Referral No Information Medications Medication SIG (Take, Route, Frequency, Duration) Notes Start Date End Date Status amLODIPine Besylate 5 MG Tablet 1 tablet Orally daily; Duration: 90 days Active Doxepin HCl 3 MG Tablet 1 tablet at bedt eddie Orally Once a day; Duration: 90 days 11/20/2024 Active rOPINIRole HCl 3 MG Tablet 1 tablet 1 to 3 hours before bedtime Orally Once a day Not-Taking Arimidex 1 MG Tablet 1 tablet Orally Onc e a day Active Alendronate Sodium 70 MG Tablet 1 tablet Orally once a week; Duration: 90 days Active Sucralfate 1 GM Tablet 1 tablet on an em pty stomach Orally Twice a day Active Sertraline HCl 50 MG Tablet 1 tablet Orally Once a day Active Omeprazole 40 MG Capsule Delayed Release 1 capsule 1/2 to 1 hour before morning meal Orally Once a day Not-Taking Vitamin D3 25 MCG (1000 UT) Capsule 1 capsule Orally Once a day Active Lisinopril-hydroCHLOROthi azide 20-12.5 MG Tablet 1 tablet Orally Once a day Active Calcium 600 MG Tablet 1 tablet with meal s Orally Twice a day Active Midodrine HCl 5 MG Tablet 1 tablet Orall y 3 times a day Active Social History Section Notes: Smoking-former 50 years ago Alcohol- denies Caffeine- denies Smoking-former 50 years ago Alcohol- denies Caffeine- denies Problems Problem Type SNOMED Code ICD Code Onset Dates Problem Status W/U Status Risk Notes Problem Insomnia (907092165) 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 Vital Signs Heart Rate 55 /min 10/01/2024 Respiratory Rate 12 /min 10/01/2024 Height-cm 170.18 cm 10/01/2024 Oximetry 96 % 10/01/2024 Blood pressure diastolic 63 mm Hg 10/01/2024 Weight-kg 74.39 kg 10/01/2024 Height 67 in 10/01/2024 Blood pressure systolic 149 mm Hg 10/01/2024 Weight 164 lbs 10/01/2024 BMI 25.68 kg/m2 10/01/2024 Encounters Encounter Location Date Provider Diagnosis [facility] [place] [address] [address] 12/25/2023 Provider Migration [facility], [address] [address] 03/14/2024 Duong Harrington [facility] [place] [address] [address] 03/14/2024 Provider Migration [facility] [place] [address] [address] 04/01/2024 Duong Harrington [facility] [place] [address] [address] 04/12/2024 Duong Harrington [facility] [place] [address] [address] 04/15/2024 Duong Harrington [facility] [place] [address] [address] 04/15/2024 Provider Migration [facility] [place] [address] [address] 05/22/2024 Provider Migration [facility] [place] [address] [address] 05/22/2024 Duong Harrington [facility] [place] [address] [address] 05/27/2024 Duong Harrington [facility] [place] [address] [address] 05/28/2024 Provider Migration [facility], [address] [place] [phone] 05/28/2024 Duong Harrington [facility] [place] [address] [place] [address] 07/03/2024 Duong Harrington [facility] [place] [address] [place] [phone] 10/01/2024 Teresa Sagan Restless leg syndrome G25.81 [facility] [place] [address] [place] [phone] 10/30/2024 Teresa Sagan [facility] [place] [address] [place] [phone] 11/05/2024 Teresa Sagan [facility], [address] [address] 11/18/2024 Teresa Sagan [facility], [address] [address] 10/14/2024 Teresa Sagan [facility], [address] [address] 11/26/2024 Teresa Sagan Insomnia due to medical condition G47.01 [facility] [place] [address] [place] [phone] 10/14/2024 Teresa Sagan [facility], [address] [address] 10/15/2024 Teresa Sagan [facility], [address] [address] 10/16/2024 Teresa Sagan [facility], [address] [address] 11/14/2024 Teresa Sagan [facility], [address] [address] 11/19/2024 Teresa Sagan Insomnia due to medical condition G47.01 [facility], [address] [address] 11/25/2024 Teresa Sagan Assessments Encounter Date Diagnosis (ICD Code) Assessment Notes Treatment Notes Treatment Clinical Notes Section Notes 10/01/2024 Restless leg syndrome (ICD-10 - G25.81) 11/19/2024 Insomnia due to medical condition (ICD-10 - G47.01) 11/26/2024 Insomnia due to medical condition (ICD-10 - G47.01) Plan Of Treatment Next Appt Details Provider Name:Teresa Farfan, 12/19/2024 09:30:00 AM, [address] [facility], [address], [place], [address], [id number] Insurance Providers Payer Name Payer Address Payer Phone Subscriber Number Group Number Insured Name Patient Relationship to Insured Coverage Start Date Coverage End Date [employer] Preferred [address] [place] [id number] SIMA BANERJEE Self - patient is the insured Medical (General) History Medical History History ICD Code hypertension restless leg syndrome Surgical History Surgery Date(Month/Year) breast cancer- removed nodule-5-6 years ago
--- OUTSIDE RECORDS SUMMARY | 2024-12-02 10:52 | XMS_ITS | Clinical Summary ---
Author Organization [facility] Address [address] [place] [address] Care Team Providers Care Management Coordinator Name Role Phone Michael Cristina MD Primary Care Provider [phone] Allergies Active Allergy Reactions Criticality Noted Date [...] age to complete this topic Care Teams Management Coordinator Relationship Specialty Start Date End Date Michael Cristina MD [address] [place] [address] PCP - General Internal Medicine 03/26/19
== END 2024-12-02 09:57 | disposition home or self-care (01) ==
LOC: HO.HSM 09:32
PROVIDERS: PCP Internal Medicine; Visit Provider Registered Nurse
DX: G25.81 Restless legs syndrome (principal); G62.9 Polyneuropathy, unspecified; G31.84 Mild cognitive impairment of uncertain or unknown etiology
CPT/HCPCS: 99214

== ENCOUNTER → 2024-12-02 09:31 | Outpatient (BNVA) | payer MEDICARE, SELFPAY | PROVIDERS: PCP Internal Medicine; Visit Provider Registered Nurse | DX: G25.81 Restless legs syndrome (principal); G62.9 Polyneuropathy, unspecified; G31.84 Mild cognitive impairment of uncertain or unknown etiology | CPT/HCPCS: 99212 ==